=== PATIENT | male | born 1965 | race African-American/Black ===

== ENCOUNTER 2016-12-14 16:56 | Inpatient (IN) | payer OTHER ==
[~2016-12-14] VITALS: Ht 182.9 cm; Wt 114.8 kg
--- NOTE | ~2016-12-14 | HC ---
[facility] [place] [address] CONSULTATION Name: CHAYITO SU Room #: 310-P ADM IN M.R.#: [id number] Admission: 12/14/16 Attend Phys: Satya Frias Discharge: Date of : 65 Report #: [id number] THIS REPORT FOR: //name// CC: LOIS Frias DATE OF SERVICE: 12/15/2016 REASON FOR CONSULTATION: Renal failure with diabetic nephropathy and uncontrolled hypertension. HISTORY OF PRESENT ILLNESS: This is a 51-year-old male who has been followed by our group. He chronically sees Dr. Hoff in the office prior to Dr. Hoff's assisted. The patient has a known history of chronic kidney disease stage 4 due to diabetic nephropathy and hypertension. When he was last seen in the office by Dr. Hoff which was late October 2016, his creatinine level was 3.3 and 3.7 g of proteinuria. He had mild hyperkalemia with a potassium level of 5.6. He was on multidrug management for his hypertension. His medication list is as noted below. The patient states he has recently had blood pressures in the 130s/70s range and is comfortable with that, he has not had much in the way of edema. He does relate though that he has had progressive dizziness and weakness with lightheadedness over the past several months, which has gotten worse. He has chronic back pain. He also has chronic peripheral neuropathy. He is on extensive list of medications. He recently was stopped as far was taking some chronic cyclobenzaprine. He still remains though on some desipramine, diazepam, Cymbalta, gabapentin 600 mg t.i.d., hydrocodone and trazodone. Now his admitting meds are different than what we had list at the hospital. The trazodone on office list was 50 mg t.i.d. and he says he is taking that, although the medication list here in the hospital only says once daily at night, which will probably be more acceptable. There is also a list of some propafenone which I am uncertain if he is taking or not. His back pain is still his main presenting complaint though. From a kidney history, he is aware that his kidney function has been getting worse. He says he has not been having much in the way of edema and says he has no trouble voiding urine. PAST MEDICAL HISTORY: Longstanding diabetes and hypertension, this dates back many years. He has a history of coronary artery disease. He also has a history of pulmonary emboli. He is chronically on anticoagulation for that. He has intermittent atrial fibrillation in addition. He has chronic back pain, also has a history of gout. High blood pressure has been hard to control over the years. MEDICATIONS: As best I can tell, cyclobenzaprine was on his list, but has been stopped; metoprolol 25 mg b.i.d., Symbicort inhaler, nitroglycerin p.r.n., [facility] [address] [place] [address] CONSULTATION Name: GEORGESCHAYITO Room #: 310-P ADM IN M.R.#: [id number] Admission: 12/14/16 Attend Phys: Satya Frias Discharge: Date of : 65 Report #: [id number] propafenone 150 mg q. 8 hours, isosorbide mononitrate 30 mg daily, aspirin 81 mg daily, Lantus at bedtime, NovoLog 6 units 3 times a day, atorvastatin 40 mg daily, gabapentin 600 mg t.i.d., desipramine 25 mg daily, furosemide 40 mg b.i.d., lisinopril 20 mg b.i.d., clonidine 0.2 mg b.i.d., amlodipine 10 mg daily, metoprolol 50 mg b.i.d., tamsulosin 0.4 mg daily. ALLERGIES: Listed to some food products, no medications. The office list notes LISINOPRIL caused cough. FAMILY HISTORY: Negative for renal disease. SOCIAL HISTORY: The patient is chronically disabled due to his back. He has a female plastics engineering teacher who is here with him at this time. REVIEW OF SYSTEMS: Mainly positive for the dizziness, lightheadedness, weakness and the back pain. He says his edema has been well controlled. He has been working with our chronic kidney disease team as far as working on dietary control and thinks he is making improvements there. Currently denies dyspnea, chest pain, no palpitations. Denies nausea or vomiting. Reports no difficulty voiding urine. He thinks his edema has been well controlled, tends to be sleepy. Energy level is diminished. Denies fevers, chills or sweats. Reports no recent visual or hearing changes. PHYSICAL EXAMINATION: GENERAL: A very pleasant 51-year-old male, awake, alert and oriented at this time. VITAL SIGNS: Blood pressure 138/91, heart rate 74, respiratory rate 19, temperature 36.4, oxygen saturation 96%. HEENT: Shows pupils are equal and reactive. Sclerae are nonicteric. He does have bilateral nystagmus with lateral gaze. NECK: Shows no adenopathy, thyromegaly, JVD or bruit. CHEST: Clear bilaterally. BACK: Shows no CVA tenderness. HEART: Has a regular rate and rhythm. ABDOMEN: Has active bowel sounds, is soft and nontender. I cannot palpate organomegaly or masses. EXTREMITIES: Show no peripheral edema, has diminished pedal pulses. LABORATORY DATA: On admission, sodium 133, potassium 5.8, chloride 103, bicarbonate 20, BUN 73, creatinine 5.0, glucose 70. By this morning, potassium down to 5.1, BUN 66, creatinine 4.7. Calcium 7.8, phosphorus 5.2, magnesium 2.3. INR 2.0. White count 4.4, hemoglobin 12.0, hematocrit 34.6, platelets 159,000. Urinalysis; specific gravity 1.005, pH 5.0, 2+ protein, 1+ blood, urine protein creatinine ratio is about 1.8, spot urine sodium 21. ASSESSMENT: [facility] [address] [place] [address] CONSULTATION Name: CHAYITO SU Room #: 310-P ADM IN M.R.#: [id number] Admission: 12/14/16 Attend Phys: Satya Frias Discharge: Date of : 65 Report #: [id number] 1. Chronic kidney disease stage 4. He has an acute worsening. He has actually shown a fairly rapid progression over the recent months. He was still nephrotic in the office just a couple of months ago. His proteinuria is down about 1.8 grams now, which is actually an improvement. This would suggest he has had better blood pressure control, partly related to improved dietary balance. His lisinopril has been stopped but I want to get him back on it as this will be one of the keys to long-term management of his kidney state and preservation as best we can. I will get him back on 20 mg once a day. Heart rate is fairly well controlled. Volume is fairly good. He will need some long-term diuretic management and he has not been on any at this point. 2. Weakness and lightheadedness. He is on a massive grouping of medications and I think he is getting a lot this from that. On exam and review, it does not appear that he has been hypotensive and it does not appear that this is due to either his renal function or blood pressure medications. He has been on massive doses of gabapentin and as his renal function has declined, it is not clearing as well. He is also on numerous other both sedating and neuroactive medications. His gabapentin has already been stopped, it is appropriate. It will take a while for that to clear, but once it does, then we can discuss if he can get back on a lower dose, but certainly the 600 mg t.i.d. is way too much gabapentin for someone with his level of renal function. This will obviously be a difficult problem as his main complaint still related to his back pain now. 3. Hypertension. His grouping of meds is way too many. I am going to back off his clonidine as it may be causing some of his neuroactive problems also. We will cut him back to the nighttime dose only at this point. I will get him back on 20 mg of lisinopril. We will continue his other blood pressure medications at this time and see if we can streamline, rather than having small to moderate doses of multiple meds increasing a few and selecting fewer meds. 4. Chronic back pain as noted above. 5. Longstanding diabetes. 6. Hyperkalemia, mild. Again, potassium is better today. He has already received some dietary restriction as an outpatient. We will continue to work with him on that. Again, I would like to keep him on the lisinopril. PLAN: 1. Cut back clonidine to bedtime only. 2. Resume lisinopril 20 mg at bedtime. 3. Continue IV fluids overnight. 4. Recheck labs in the morning. 5. Stop his gabapentin. 6. We may need to wean back on some of his other neuroactive medications to allow his symptoms to improve. 7. We will follow along in the care of this pleasant patient. <ELECTRONICALLY SIGNED> By: Олег Nichols MD 12/16/16 0906 1200 [id number] Олег Nichols MD /nt
--- NOTE | ~2016-12-14 | EKG ---
[address] [place] [address] ELECTROCARDIOGRAM REPORT Name: CHAYITO SU Room #: 310-P ADM IN M.R.#: [id number] Admission: 12/14/16 Attend Phys: Satya Frias Discharge: Date of : 65 Report #: [id number] THIS REPORT FOR: //name// [facility] ED Test Date: 2016-12-14 Test Time: 20:47:39 Pat Name: CHAYITO SU Department: Room: 310 Gender: M Assistant In Nursing: Manish VENEGAS : 1965 Requested By: Jory Uribe Order Number: [id number] MD: Rufino Rivera Measurements Intervals [place] Rate: 70 P: 42 WV: 253 QRS: -18 QRSD: 82 T: -28 QT: 403 QTc: 435 Interpretive Statements Sinus rhythm Prolonged WV interval Borderline left axis deviation Borderline T abnormalities, inferior leads Borderline ST elevation, anterior leads Compared to ECG 08/30/2015 16:35:23 First degree AV block now present T-wave abnormality now present Atrial abnormality no longer present ST (T wave) deviation still present Electronically Signed On 12-16-2016 22:12:59 CDT by Rufino Rivera [email or web address] <ELECTRONICALLY SIGNED> By: Rufino Rivera MD 12/16/162211 46 46 Rufino Rivera MD /EPI
[~2016-12-14 16:56] MED LIST: ACETAMINOPHEN-120 ML PO; ACETAMINOPHEN325 M1 PO; ADVAIR HFA 45MC1 AER INH; ADVAIR HFA115 MCG/21; ADVAIR HFA115 MCG/21 INH; AMITRIPTYLINE; AMITRIPTYLINE H25 M2 PO; AMITRIPTYLINE H25 M4 PO; AMLODIPINE BESY10 MG PO; AMLODIPINE BESYL5 MG PO; AMOXICILLIN 50500 M1 PO; APAP/CODEINE ELI5 M1 OR; ASPIR 8181 MG PO; ASPIRIN EC81 M1 PO; ASPIRIN81 MG PO; ATORVASTATIN CA40 MG PO; CARAFATE 1 GM TA1 G1 PO; CARISOPRODOL 3350 MG PO; CLORAZEPATE DI7.5 M1 PO; COUMADIN 5 MG TA5 M1 PO; COUMADIN7.5 MG PO; COZAAR 50 MG TA50 MG PO; CYCLOBENZAPRINE10 MG PO; CYMBALTA20 MG PO; CYMBALTA60 MG PO; DEMADEX10 MG PO; DESIPRAMINE 2525 M1 PO; DIAZEPAM 5 MG5 M1 PO; DRISDOL50000 UNIT PO; DULCOLAX STOOL100 MG PO; ELAVIL; ENOXAPARIN100 MG/11 SUBQ; FISH OIL 1,2001 EAC3 PO; FLEXERIL PO; FLOMAX0.4 MG PO; FUROSEMIDE 40 M40 M1 PO; GLIPIZIDE ER10 MG PO; GLUCOPHAGE; GLUCOTROL5 MG PO; HORIZANT600 MG PO; HYDROCHLOROTHIA25 M2; HYDROCHLOROTHIA25 M2 PO; HYDROCODONE-AP1 EAC1 PO; HYDROCODONE-AP1 EAC6 PO; HYZAAR PO; IBUPROFEN 600600 M1 PO; IBUPROFEN 800800 M1 PO; IBUPROFEN 800800 MG PO; IMDUR 30 MG TAB30 M1 PO; LANTUS SUBQ; LASIX 40 MG TAB40 M2 PO; LATUDA40 MG PO; LEVEMIR; LEVEMIR SUBQ; LIPITOR40 MG PO; LISINOPRIL10 MG PO; LISINOPRIL20 MG PO; LOPRESSOR 50 MG50 M1 PO; LOPRESSOR100 MG PO; LOPRESSOR25 PO; LOPRESSOR50 PO; MEDROLDOSEPACK PO; MELOXICAM7.5 MG PO; METOPROLOL SUC100 MG PO; METOPROLOL TAR100 MG PO; NAPROSYN500 MG; NAPROSYN500 MG PO; NEURONTIN 300300 M1 PO; NEURONTIN600 MG PO; NITROGLYCERIN0.4 MG SL; NITROGLYCERIN0.4 MG SUBLING; NITROSTAT0.4 MG SUBLING; NORCO 5-325 TA1 EACH PO; NORVASC 5 MG TAB5 MG PO; NOVOLOG100 UNIT/1 SUBQ; OMEGA-31000 M1 PO; OMEGA-31000 MG PO; OXECTA5 MG; PEPCID20 MG PO; PEPCID40 MG PO; PERCOCET 5-3251 EACH PO; PRAVACHOL40 MG PO; PRAVACHOL80 MG PO; PRAVASTATIN SOD10 MG PO; PROPAFENONE 15150 MG PO; PROTONIX40 M1 PO; PROTONIX40 M2 PO; SIMVASTATIN40 MG PO; SYMBICORT80 MCG/4.1 INH; TOPROL XL50 MG PO; TRAMADOL 50 MG50 MG PO; TYLENOL W/CODEI1 TA2 PO; TYLENOL325 MG PO; VALIUM5 MG PO; VENTOLIN17 GM INH; VICODIN 5-3001 EACH PO; VITAMIN D1000 UNI1 PO; VITAMIN D2000 UNI1 PO; VITAMIN D35000 UNI1 PO; VITAMIN D350000 UNIT PO; VOLTAREN GEL 1100 GM TOP; XANAX 0.25 MG0.25 MG PO; XANAX 0.5 MG0.5 MG PO; ZANTAC 150MG T150 M1 PO; ZESTRIL20 MG PO; ZIAGEN 300 MG300 MG; ZOFRAN ODT4 MG PO; ZPAK PO
[2016-12-14 16:57] VITALS: BP 122/80
[2016-12-14 17:30] LABS: MCV 89.5 fL (80.0-100.0); WBC 8.1 thou/uL (4.0-11.0)
[2016-12-14 17:31] LABS: HEMATOCRIT 34.2 % (42.0-52.0); HEMOGLOBIN 11.8 gm/dL (14.0-18.0); MCHC 34.6 g/dL (28.0-37.0); RBC 3.82 mil/uL (4.50-6.00); RDW 13.9 % (10.5-14.5)
[2016-12-14 17:33] LABS: CALCIUM 8.1 mg/dL (8.5-10.1); POTASSIUM 5.8 mmol/L (3.5-5.1)
[2016-12-14 17:51] LABS: MANUAL DIFF YES
[2016-12-14 18:11] LABS: ABSOLUTE NEUTROPHILS 4.7 thou/uL (1.4-8.2); PLATELET COUNT 173 thou/uL (150-400); TOTAL CELL COUNT 100
[2016-12-14 18:14] LABS: APTT 35.8 Seconds (24.5-32.8); PROTIME 19.9 Seconds (9.3-11.4)
[2016-12-14] MEDS ORDERED: NORCO 5-325 TA1 EACH PO (19:20)
[2016-12-14 21:10] VITALS: BP 126/69; BP 129/85
[2016-12-14] MEDS ORDERED: WARFARIN SODIUM5 MG PO (23:05)
[2016-12-14] MEDS ORDERED: PROAIR HFA8.5 GM INH (23:05)
[2016-12-14] MEDS ORDERED: CATAPRES0.2 MG PO (23:06)
[2016-12-14] MEDS ORDERED: WARFARIN SODIUM1 MG PO (23:06)
[2016-12-14] MEDS ORDERED: TRAZODONE HCL50 MG PO (23:07)
[2016-12-14] MEDS ORDERED: VALIUM5 MG PO (23:07)
[2016-12-14] MEDS ORDERED: LOPRESSOR50 PO (23:08)
[2016-12-14] MEDS ORDERED: FENOFIBRATE160 MG PO (23:08)
[2016-12-14] MEDS ORDERED: NITROGLYCERIN0.4 MG SUBLING (23:09)
[2016-12-14 23:55] VITALS: BP 120/80
[2016-12-15] VITALS (8 sets, daily range): BP systolic 128–181; BP diastolic 86–95
[2016-12-15 03:56] LABS: PROTIME 20.3 Seconds (9.3-11.4)
[2016-12-15 04:07] LABS: HEMATOCRIT 34.6 % (42.0-52.0); MCH 31.1 pg (26.0-34.0); MCHC 34.6 g/dL (28.0-37.0); RBC 3.85 mil/uL (4.50-6.00); RDW 14.1 % (10.5-14.5); WBC 4.4 thou/uL (4.0-11.0)
[2016-12-15 04:18] LABS: CALCIUM 7.8 mg/dL (8.5-10.1); CREATININE 4.7 mg/dL (0.7-1.3); MAGNESIUM 2.3 mg/dL (1.8-2.4); PHOSPHORUS 5.2 mg/dL (2.5-4.9); POTASSIUM 5.1 mmol/L (3.5-5.1)
[2016-12-15 09:34] LABS: URINE BILIRUBIN NEGATIVE (Negative); URINE BLOOD 1+ (Negative); URINE COLOR YELLOW; URINE GLUCOSE-RANDOM* NEGATIVE (Negative); URINE KETONES NEGATIVE (Negative); URINE NITRITE NEGATIVE (Negative); URINE PROTEIN (DIPSTICK) 2+ (Negative); URINE SPECIFIC GRAVITY <= 1.005 (1.003-1.035); URINE UROBILINOGEN 0.2 E.U./dl (0.2-1.0)
[2016-12-15 09:53] LABS: URINE CREATININE-RANDOM* 43.5 mg/dL; URINE PROTEIN-RANDOM* 80.9 mg/dL (<11.9)
[2016-12-15 10:02] LABS: BACTERIA None Seen /HPF (None Seen); CASTS None Seen /LPF (None Seen); CRYSTALS None Seen /LPF (None Seen); SQUAMOUS None Seen /LPF (0-3); URINE RBC None Seen /HPF (0-2); URINE WBC 0-5 Rare /HPF (0-5)
[2016-12-16 03:56] LABS: HEMATOCRIT 35.7 % (42.0-52.0); HEMOGLOBIN 12.3 gm/dL (14.0-18.0); MCH 30.9 pg (26.0-34.0); MCHC 34.5 g/dL (28.0-37.0); MCV 89.6 fL (80.0-100.0); RBC 3.98 mil/uL (4.50-6.00); WBC 4.8 thou/uL (4.0-11.0)
[2016-12-16 04:00] VITALS: BP 148/92
[2016-12-16 04:23] LABS: INR 1.8; PROTIME 18.7 Seconds (9.3-11.4)
[2016-12-16 04:29] LABS: ALBUMIN 2.8 g/dL (3.4-5.0); CALCIUM 7.7 mg/dL (8.5-10.1); CREATININE 4.2 mg/dL (0.7-1.3)
[2016-12-16 04:36] LABS: POTASSIUM 6.2 mmol/L (3.5-5.1)
[2016-12-16 07:54] VITALS: BP 149/84
[2016-12-16 15:34] VITALS: BP 161/91
[2016-12-16 19:37] VITALS: BP 159/91
[2016-12-17 05:01] VITALS: BP 196/112
[2016-12-17 06:30] LABS: INR 1.9; PROTIME 19.4 Seconds (9.3-11.4)
[2016-12-17 06:31] LABS: ALBUMIN 3.2 g/dL (3.4-5.0); CALCIUM 8.4 mg/dL (8.5-10.1); CREATININE 3.5 mg/dL (0.7-1.3); PHOSPHORUS 5.2 mg/dL (2.5-4.9)
[2016-12-17 06:32] LABS: POTASSIUM 4.9 mmol/L (3.5-5.1)
[2016-12-17 08:45] VITALS: BP 169/87
[2016-12-17] MEDS ORDERED: HYDROCODON-ACE1 EAC7 PO (09:56)
[2016-12-17] MEDS ORDERED: HYDRALAZINE20 MG/M1 IV PUSH (16:23)
[2016-12-17] MEDS ORDERED: LIDODERM 5%1 PATC1 TRANSDERM (16:23)
[2016-12-17] MEDS ORDERED: LISINOPRIL40 MG PO (16:23)
[2016-12-17] MEDS ORDERED: HUMALOG100 UNIT/1 SUBQ (16:23)
[2016-12-18] MEDS ORDERED: NOVOLOG FL100 UNIT/M SC (09:54)
[2016-12-18] MEDS ORDERED: FENOFIBRATE160 MG PO (09:55)
[2016-12-18] MEDS ORDERED: PEPCID20 MG PO (09:55)
[2016-12-18] MEDS ORDERED: FLOMAX0.4 MG PO (09:56)
[2016-12-18] MEDS ORDERED: SYMBICORT80 MCG/4.1 INH (09:57)
[2016-12-18] MEDS ORDERED: ASPIR 8181 MG PO (09:57)
[2016-12-18] MEDS ORDERED: ATORVASTATIN CA40 MG PO (09:57)
[2016-12-18] MEDS ORDERED: LOPRESSOR50 PO (09:58)
[2016-12-18] MEDS ORDERED: HYDROCODONE-AP1 EAC6 PO (09:59)
[2016-12-18] MEDS ORDERED: LISINOPRIL20 MG PO (09:59)
[2016-12-18] MEDS ORDERED: NORVASC10 MG PO (10:00)
[2016-12-18] MEDS ORDERED: LEVEMIR SUBQ (10:00)
[2016-12-18] MEDS ORDERED: CATAPRES0.2 MG PO (10:01)
[2016-12-18] MEDS ORDERED: NEURONTIN600 MG PO (10:01)
[2016-12-18] MEDS ORDERED: PROAIR HFA8.5 GM INH (10:02)
[2016-12-18] MEDS ORDERED: COUMADIN 1MG TAB1 M1 PO (10:03)
[2016-12-18] MEDS ORDERED: VALIUM5 MG PO (10:03)
[2016-12-18] MEDS ORDERED: COUMADIN 5 MG TA5 M1 PO (10:03)
[2016-12-18] MEDS ORDERED: DULOXETINE HCL30 MG PO (10:04)
[2016-12-18] MEDS ORDERED: DESIPRAMINE 2525 M1 PO (10:05)
[2016-12-18] MEDS ORDERED: TRAZODONE HCL50 MG PO (10:06)
[2016-12-18] MEDS ORDERED: LATUDA60 MG PO (10:06)
== END 2016-12-17 17:37 | DRG 683 ==
LOC: ER 16:56 → EROBS 20:25 → 3N 20:25
PROVIDERS: Emergency Medicine; Hospitalist; Internal Medicine Nephrology; Nurse Practitioner Acute Care
DX: I12.9 Hypertensive chronic kidney disease with stage 1 through stage 4 chronic kidney disease, or unspecified chronic kidney disease (principal); N18.4 Chronic kidney disease, stage 4 (severe); N17.9 Acute kidney failure, unspecified; E11.22 Type 2 diabetes mellitus with diabetic chronic kidney disease; I48.2 Chronic atrial fibrillation; E11.21 Type 2 diabetes mellitus with diabetic nephropathy; E87.5 Hyperkalemia; E86.0 Dehydration; E11.649 Type 2 diabetes mellitus with hypoglycemia without coma; G89.29 Other chronic pain; M54.9 Dorsalgia, unspecified; F41.9 Anxiety disorder, unspecified; F32.9 Major depressive disorder, single episode, unspecified; F11.90 Opioid use, unspecified, uncomplicated; M10.9 Gout, unspecified; Z79.4 Long term (current) use of insulin; Z91.013 Allergy to seafood; Z91.018 Allergy to other foods; Z79.01 Long term (current) use of anticoagulants; Z79.899 Other long term (current) drug therapy; Z95.5 Presence of coronary angioplasty implant and graft; Z87.891 Personal history of nicotine dependence; Z86.711 Personal history of pulmonary embolism
CPT/HCPCS: 10096

== ENCOUNTER 2016-12-17 16:26 | Inpatient (IN) | payer OTHER ==
[~2016-12-17] VITALS: Ht 182.9 cm; Wt 110.5 kg
--- NOTE | ~2016-12-17 | HC ---
[facility] [place] [address] [place] [address] CONSULTATION Name: CHAYITO SU Room #: 505-P [facility] IN M.R.#: [id number] Admission: 12/17/16 Attend Phys: Jose Alejandro Leon MD Discharge: 12/21/16 Date of : 65 Report #: [id number] THIS REPORT FOR: //name// CC: LOIS Leon DATE OF SERVICE: 12/19/2016 CLINICAL PRESENTATION: The patient is a 51-year-old -[place] male admitted to the [facility] rehabilitation unit for a comprehensive inpatient rehabilitation program to improve functional mobility, activities of daily living and self-care and mental status secondary to impairment from a metabolic encephalopathy. He reported being at his home when he went to the restroom, returned to his room and lost his balance, falling backward and striking his head. 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 A complete description of his medical condition and history can be found in his medical record. Neuropsychological consultation was requested to provide assistance in the assessment of cognitive and emotional status and to provide recommendations and services. Prior to this most recent medical event, the patient was living independently in his own home. He has four children. The patient has been on disability since the year 1999. He reports having worked for [employer] prior to disability. The patient is a high school graduate. TECHNIQUES UTILIZED: Clinical interview, review of medical records, staff consultation and behavioral observation, clinical interview, mini mental status exam 2 standard version and category fluency and clock drawing. EXAMINATION FINDINGS: The patient was alert and cooperative with the assessment. He accurately described events surrounding his admission. There is no evidence of aphasia. He does not report auditory or visual hallucinations. Thought content was appropriate. He described his symptoms to include difficulty with sleep, appetite, blurred vision and variability in cognition. Subjective anxiety and depression is also reported. The patient indicates that his son would help with nutrition at home and clean his house. He also has assistance managing medication. He appears independent for basic and some instrumental activities of daily living. The patient discontinued driving about 17 years ago. His performance on the MMSE 2 brief version is within normal limits with a raw [facility] [address] [place] [address] CONSULTATION Name: CHAYITO SU Room #: 505-P [facility] IN .R.#: [id number] Admission: 12/17/16 Attend Phys: Jose Alejandro Leon MD Discharge: 12/21/16 Date of : 65 Report #: [id number] score of 14 of 16. He was 3/3 for initial registration, 5/5 for orientation to time and 5/[address]. He was 1/3 correct for immediate recall of 3 items after a brief time delay and distraction. Mild impairment was suggested on the MMSE 2 standard version with a raw score of 25 of 30 and a T-score of 39. He was 3/5 for serial sevens, 2/2 for naming, 1/1 for repetition. Auditory comprehension was within normal limits. He could read and follow a single command. The patient was able to write a sentence. However, he had difficulty in copying a simple geometric design. The patient was able to draw a clock and set the hands at a designated time. Category fluency was within normal limits with a raw score of 19 and a T score of 50. DIAGNOSTIC IMPRESSION: Mild neurocognitive disorder, unspecified, without behavior disorder. RECOMMENDATIONS: The patient appears alert and oriented. He is having a good recovery in regard to cognitive functioning. Continued environmental support will be necessary to maintain safety. Use of compensatory strategies for memory and concentration will likely be the most helpful. The use of narcotic medication as well as medication with sedating features will contribute to variability in cognition. Sedating medication should be minimized as much as possible. Thank you very much for allowing me to provide the consultation on this patient. <ELECTRONICALLY SIGNED> By: Regis Arvizu, PhD 12/23/16 1444 [id number] [id number] Regis Arvizu, PhD /nt
--- NOTE | ~2016-12-17 | PLAN ---
[facility] [place] [place] [address] REHAB UNIT PLAN OF CARE Name: CHAYITO SU Room #: 505-P ADM IN M.R.#: [id number] Admission: 12/17/16 Attend Phys: Jose Alejandro Leon MD Discharge: Date of : 65 Report #: [id number] THIS REPORT FOR: //name// CC: LOIS Leon DATE OF SERVICE: 12/19/2016 The patient is seen back today in followup. He is in no distress. Temperature 37.2, pulse 94, respirations 21, blood pressure 184/100. He did have hyperkalemia yesterday up to 6.4, was given some Kayexalate, decreased to 5.3, is 5.9 this morning. Nephrology is involved as well as internal medicine. He is being monitored regarding his chronic kidney disease. Mental status appears to be improving. Transfers are contact guard, gait 250 feet contact guard with a front-wheeled walker. Lower extremity dressing is min assist. Speech, he only has mild comprehensive deficits. ASSESSMENT: 1. Metabolic encephalopathy. Neurontin was held. He appears to be improving. 2. Head injury with initial loss of consciousness of unknown duration. 3. Medical complexity with generalized debilitation. 4. Polypharmacy. Valium was discontinued as well as Neurontin. 5. Hyperkalemia. Nephrology is involved along with internal medicine. 6. Acute renal insufficiency with improvement. 7. Chronic kidney disease. 8. Hypertension. 9. Diabetes mellitus. 10. Prior pulmonary embolism. 11. History of atrial fibrillation. PLAN: The overall plan of care is based on the preadmission screen, post-admission physician evaluation and information garnered from therapy assessments. 1. Estimated length of stay is planning through Saturday with discharge at the end of the week. 2. Medical prognosis is reasonably good. 3. Anticipated interventions includes the interdisciplinary acute inpatient rehabilitation program. 4. Anticipated functional outcomes would be for the patient to become modified independent with transfers, mobility and ADLs and cognition, so that he can return back to the home setting. 5. Discharge destination will be back to the home setting where he lives in an apartment. He does have assistance at his apartment. 6. Expected therapy by discipline includes PT, OT and speech 1 hour per day [address] [address] REHAB UNIT PLAN OF CARE Name: CHAYITO SU Room #: 505-P [facility] IN .R.#: [id number] Admission: 12/17/16 Attend Phys: Jose Alejandro Leon MD Discharge: Date of : 65 Report #: [id number] each five days a week throughout the duration of the acute inpatient rehabilitation stay. By: [id number] Jose Alejandro Leon MD /nt
--- NOTE | ~2016-12-17 | H ---
[facility] [place] [place] [address] HISTORY AND PHYSICAL Name: CHAYITO SU Room #: 505-P ADM IN M.R.#: [id number] Admission: 12/17/16 Attend Phys: Jose Alejandro Leon MD Discharge: Date of : 65 Report #: [id number] THIS REPORT FOR: //name// CC: LOIS Leon DATE OF SERVICE: 12/18/2016 HISTORY OF PRESENT ILLNESS: The patient is a 51-year-old -[place] male with stage 4 end-stage renal disease who fell at home. He had a loss of consciousness of unknown duration, noted blood from his nose. He was noted to be more disoriented. He has a history of chronic back pain; he has been on narcotics and prior spinal cord stimulator removal. He was noted to be adamant that he had not been abusing his medications. He was noted to have hyperkalemia. He has a prior history of chronic AFib and a prior history of pulmonary embolism. He was noted to have mental status changes with an encephalopathy and was kept off his gabapentin as it was thought to likely be a contributing factor. CT of the head was unremarkable. CT of the cervical spine was negative for fracture. His renal function improved with his creatinine decreasing from a high of 5.0, down to 3.8. He usually runs at baseline around 3. Nephrology has been closely involved. Mental status changes are noted to be improving. He is continuing on anticoagulation with his prior PEs and atrial fibrillation. With his cognitive issues and significant functional decline, he has now been admitted for acute in-hospital inpatient rehabilitation. PAST MEDICAL HISTORY: Includes chronic pain syndrome with prior TENs, spinal cord stimulator and removal; insulin-dependent diabetes mellitus; depression; anxiety; gout; hyperlipidemia; cardiac stents x 1; carpal tunnel, both wrists without surgery; he notes history of bilateral rotator cuff discomfort, but no surgery and no history of tears; history of restless leg syndrome; chronic kidney disease, stage 3 to 4; type 2 diabetes mellitus; bilateral PEs, 07/24/2015. MEDICATIONS: Please see the full medication listing. HABITS: Former smoker, quit greater than a year ago. No history of alcohol abuse. ALLERGIES: To CERTAIN FOODS, APPLE, FISH AND SEA FOOD. SOCIAL HISTORY: Lives in an apartment alone, no steps. Premorbidly has utilized a front-wheeled walker for approximately the last 8 years. He notes he uses it to help with his decreased balance. He does have a son in the area, but this son and his are in the process of moving to [place] in the fall. REVIEW OF SYSTEMS: No current complaints of chest pain, shortness of breath or [facility] [address] [place] [address] HISTORY AND PHYSICAL Name: CHAYITO SU Room #: 505-P [facility] IN M.R.#: [id number] Admission: 12/17/16 Attend Phys: Jose Alejandro Leon MD Discharge: Date of : 65 Report #: [id number] abdominal discomfort. 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 He has some decreased sensation in distal lower extremities consistent with his neuropathy. No current focal extremity pain complaints. PHYSICAL EXAMINATION: GENERAL: He is a pleasant, overweight 51-year-old -[place] male, no obvious distress. VITAL SIGNS: Last recorded temperature 98.3, pulse 78, respirations 20, blood pressure 148/92. NEUROLOGIC: The patient is alert. There is some latency to his responses. He tends to be concrete. He is cooperative. Facies appeared to be symmetric. HEENT: Benign. CHEST: Sounded clear to auscultation. CARDIAC: Regular rate and rhythm. ABDOMEN: Obese, bowel sounds positive, nontender. GENITOURINARY AND RECTAL: Deferred. MUSCULOSKELETAL: He has functional range of motion of the upper extremities, strength is grade 4-/5, DTRs are trace to 1. Lower extremities, no focal calf swelling, decreased distal sensation large toe to proprioception. His strength of lower extremities is grade 3+ to 4-/5, DTRs are trace to 1. Transfers have been contact guard and short distance ambulation is contact guard. ASSESSMENT: A 51-year-old -[place] female with the following problem list: 1. Metabolic encephalopathy. Neurontin was held as per Nephrology. 2. Head injury with initial loss of consciousness of unknown duration. This may be contributing to the mental status changes noted above. 3. Medical complexity with generalized debilitation. 4. Polypharmacy. Valium was discontinued as well as the Neurontin. 5. Acute renal insufficiency with improvement. 6. Chronic kidney disease, on CRISTIAN inhibitor. 7. Hypertension. 8. Diabetes mellitus. 9. Prior pulmonary embolism. 10. History of atrial fibrillation. PLAN: The patient is admitted for acute in-hospital inpatient rehabilitation. From a postadmission physician evaluation perspective, there are no relevant changes since the preadmission screening. Please see the above review of prior and current medical and functional conditions and comorbidities. Please see the patient's prior and current functional status. As far as risk of complications, he does have the multiple medical comorbidities as noted above. Initial plan of care involves the interdisciplinary acute inpatient rehabilitation program with the goal of maximizing the patient's functional independence, so that he can hopefully return back to his prior living situation. Measurable functional [address] [address] HISTORY AND PHYSICAL Name: CHAYITO SU Room #: 505-P ADM IN .R.#: [id number] Admission: 12/17/16 Attend Phys: Jose Alejandro Leon MD Discharge: Date of : 65 Report #: [id number] goals would be for him to become modified independent with transfers, mobility and ADLs at the walker level as well as to improve with cognition, so that he can return back to his apartment. Prognosis is reasonably good with estimated length of stay hopefully fairly short, around a week to 14 days. Potential barriers would include his multiple medical comorbidities and decreased functional status. By: 0846 Jose Alejandro Leon MD /nt
[~2016-12-17 16:26] MED LIST changes: +CATAPRES0.2 MG PO; +FENOFIBRATE160 MG PO; +HUMALOG100 UNIT/1 SUBQ; +HYDRALAZINE20 MG/M1 IV PUSH; +HYDROCODON-ACE1 EAC7 PO; +LIDODERM 5%1 PATC1 TRANSDERM; +LISINOPRIL40 MG PO; +PROAIR HFA8.5 GM INH; +TRAZODONE HCL50 MG PO; +WARFARIN SODIUM1 MG PO; +WARFARIN SODIUM5 MG PO
[2016-12-17 17:40] VITALS: BP 165/95
[2016-12-18 06:08] LABS: INR 2.3; PROTIME 23.6 Seconds (9.3-11.4)
[2016-12-18 06:12] LABS: ALBUMIN 3.1 g/dL (3.4-5.0); CALCIUM 8.3 mg/dL (8.5-10.1); CREATININE 3.8 mg/dL (0.7-1.3); PHOSPHORUS 4.3 mg/dL (2.5-4.9)
[2016-12-18 06:14] LABS: POTASSIUM 6.4 mmol/L (3.5-5.1)
[2016-12-18 06:15] VITALS: BP 138/89
[2016-12-18 06:16] VITALS: BP 139/91; BP 148/92
[2016-12-18] MEDS ORDERED: NOVOLOG FL100 UNIT/M SC (09:54)
[2016-12-18] MEDS ORDERED: FENOFIBRATE160 MG PO (09:55)
[2016-12-18] MEDS ORDERED: PEPCID20 MG PO (09:55)
[2016-12-18] MEDS ORDERED: FLOMAX0.4 MG PO (09:56)
[2016-12-18] MEDS ORDERED: ATORVASTATIN CA40 MG PO (09:57)
[2016-12-18] MEDS ORDERED: ASPIR 8181 MG PO (09:57)
[2016-12-18] MEDS ORDERED: SYMBICORT80 MCG/4.1 INH (09:57)
[2016-12-18] MEDS ORDERED: LOPRESSOR50 PO (09:58)
[2016-12-18] MEDS ORDERED: LISINOPRIL20 MG PO (09:59)
[2016-12-18] MEDS ORDERED: HYDROCODONE-AP1 EAC6 PO (09:59)
[2016-12-18] MEDS ORDERED: NORVASC10 MG PO (10:00)
[2016-12-18] MEDS ORDERED: LEVEMIR SUBQ (10:00)
[2016-12-18] MEDS ORDERED: NEURONTIN600 MG PO (10:01)
[2016-12-18] MEDS ORDERED: CATAPRES0.2 MG PO (10:01)
[2016-12-18] MEDS ORDERED: PROAIR HFA8.5 GM INH (10:02)
[2016-12-18] MEDS ORDERED: COUMADIN 5 MG TA5 M1 PO (10:03)
[2016-12-18] MEDS ORDERED: COUMADIN 1MG TAB1 M1 PO (10:03)
[2016-12-18] MEDS ORDERED: VALIUM5 MG PO (10:03)
[2016-12-18] MEDS ORDERED: DULOXETINE HCL30 MG PO (10:04)
[2016-12-18] MEDS ORDERED: DESIPRAMINE 2525 M1 PO (10:05)
[2016-12-18] MEDS ORDERED: LATUDA60 MG PO (10:06)
[2016-12-18] MEDS ORDERED: TRAZODONE HCL50 MG PO (10:06)
[2016-12-18 16:20] VITALS: BP 169/98
[2016-12-19 05:38] VITALS: BP 136/99
[2016-12-19 05:39] VITALS: BP 144/99
[2016-12-19 05:40] VITALS: BP 135/101
[2016-12-19 06:30] LABS: ALBUMIN 3.1 g/dL (3.4-5.0); CALCIUM 8.6 mg/dL (8.5-10.1); CREATININE 4.4 mg/dL (0.7-1.3); PHOSPHORUS 4.4 mg/dL (2.5-4.9); POTASSIUM 5.9 mmol/L (3.5-5.1)
[2016-12-19 06:33] LABS: INR 2.4; PROTIME 24.3 Seconds (9.3-11.4)
[2016-12-19 07:52] VITALS: BP 184/100
[2016-12-19 21:12] VITALS: BP 168/103
[2016-12-20] VITALS (7 sets, daily range): BP systolic 130–175; BP diastolic 85–102
[2016-12-20 06:03] LABS: INR 2.2
[2016-12-20 06:10] LABS: CALCIUM 8.7 mg/dL (8.5-10.1); CREATININE 4.7 mg/dL (0.7-1.3)
[2016-12-21 05:01] LABS: INR 2.5; PROTIME 24.9 Seconds (9.3-11.4)
[2016-12-21 05:04] LABS: ALBUMIN 3.1 g/dL (3.4-5.0); CALCIUM 8.7 mg/dL (8.5-10.1); CREATININE 4.7 mg/dL (0.7-1.3); PHOSPHORUS 5.4 mg/dL (2.5-4.9); POTASSIUM 4.6 mmol/L (3.5-5.1)
[2016-12-21 06:00] VITALS: BP 158/98
[2016-12-21 06:02] VITALS: BP 155/91
[2016-12-21 06:04] VITALS: BP 144/94
[2016-12-21 07:07] VITALS: BP 172/106
[2016-12-21 12:46] VITALS: BP 172/106
[2016-12-21] MEDS ORDERED: WARFARIN SODIUM1 MG PO (12:56)
[2016-12-21] MEDS ORDERED: TRAZODONE HCL50 MG PO (12:56)
[2016-12-21] MEDS ORDERED: NITROGLYCERIN0.4 MG SUBLING (12:56)
[2016-12-21] MEDS ORDERED: CARDURA4 MG PO (12:56)
[2016-12-21] MEDS ORDERED: NORVASC10 MG PO (12:56)
[2016-12-21] MEDS ORDERED: PROAIR HFA8.5 GM INH (12:56)
[2016-12-21] MEDS ORDERED: DULOXETINE HCL30 MG PO (12:56)
[2016-12-21] MEDS ORDERED: DESIPRAMINE 2525 M1 PO (12:56)
[2016-12-21] MEDS ORDERED: LOPRESSOR50 PO (12:56)
[2016-12-21] MEDS ORDERED: ATORVASTATIN CA40 MG PO (12:56)
[2016-12-21] MEDS ORDERED: WARFARIN SODIUM5 MG PO (12:56)
== END 2016-12-21 13:00 | disposition home health service (06) | DRG 71 ==
PROVIDERS: Internal Medicine Nephrology; Physical Medicine & Rehabilitation
DX: G93.41 Metabolic encephalopathy (principal); S06.9X9A Unspecified intracranial injury with loss of consciousness of unspecified duration, initial encounter; N17.9 Acute kidney failure, unspecified; N18.4 Chronic kidney disease, stage 4 (severe); R53.81 Other malaise; E87.5 Hyperkalemia; I48.91 Unspecified atrial fibrillation; E11.22 Type 2 diabetes mellitus with diabetic chronic kidney disease; G31.84 Mild cognitive impairment of uncertain or unknown etiology; G89.4 Chronic pain syndrome; F32.9 Major depressive disorder, single episode, unspecified; F41.9 Anxiety disorder, unspecified; E78.5 Hyperlipidemia, unspecified; G25.81 Restless legs syndrome; Z60.2 Problems related to living alone; I12.9 Hypertensive chronic kidney disease with stage 1 through stage 4 chronic kidney disease, or unspecified chronic kidney disease; R33.9 Retention of urine, unspecified; X58.XXXA Exposure to other specified factors, initial encounter; Y93.89 Activity, other specified; Y92.89 Other specified places as the place of occurrence of the external cause; Y99.8 Other external cause status; Z86.711 Personal history of pulmonary embolism; Z95.5 Presence of coronary angioplasty implant and graft; Z91.013 Allergy to seafood; Z91.018 Allergy to other foods
CPT/HCPCS: 10112

== ENCOUNTER → 2016-12-21 | Outpatient (CLI) | payer OTHER ==
[~2016-12-21] MED LIST changes: +CARDURA4 MG PO; +COUMADIN 1MG TAB1 M1 PO; +DULOXETINE HCL30 MG PO; +LATUDA60 MG PO; +NORVASC10 MG PO; +NOVOLOG FL100 UNIT/M SC
== END ==
LOC: SLEEPLAB 11:41
DX: G47.33 Obstructive sleep apnea (adult) (pediatric) (principal); R40.0 Somnolence

== ENCOUNTER → 2017-04-26 | Outpatient (CLI) | payer OTHER | LOC: SLEEPLAB 11:16 | DX: G47.33 Obstructive sleep apnea (adult) (pediatric) (principal) ==

== ENCOUNTER → 2017-06-26 | Outpatient (CLI) | payer OTHER ==
[~2017-06-26] MED LIST changes: +AUGMENTIN 500-1 EACH PO; +COLACE100 MG PO; +COUMADIN 3 MG TA3 M1 PO; +KEFLEX500 M1 PO; +MIRALAX17 GM PO; +NORCO 7.5-3251 EACH PO; +NORFLEX100 MG PO; +ONDANSETRON HCL4 M2 PO; +OXYCODONE HCL 55 MG PO; +PROBIOTIC1 EAC1 PO; +SODIUM BICARBO650 M3 PO; +UNASYN 3 GM VIAL3 G1 IV; +VELTASSA8.4 GM PO
== END ==
LOC: ULTRA 09:20
DX: N18.4 Chronic kidney disease, stage 4 (severe) (principal)

== ENCOUNTER 2017-08-06 13:35 | Emergency (ER) | payer OTHER ==
[~2017-08-06] VITALS: Ht 182.9 cm; Wt 99.8 kg
[~2017-08-06 13:35] MED LIST changes: -AUGMENTIN 500-1 EACH PO; -COLACE100 MG PO; -COUMADIN 3 MG TA3 M1 PO; -KEFLEX500 M1 PO; -MIRALAX17 GM PO; -NORCO 7.5-3251 EACH PO; -NORFLEX100 MG PO; -ONDANSETRON HCL4 M2 PO; -OXYCODONE HCL 55 MG PO; -PROBIOTIC1 EAC1 PO; -SODIUM BICARBO650 M3 PO; -UNASYN 3 GM VIAL3 G1 IV; -VELTASSA8.4 GM PO
[2017-08-06] MEDS ORDERED: CYMBALTA20 MG PO (14:11)
[2017-08-06] MEDS ORDERED: ONDANSETRON HCL4 M2 PO (14:12)
[2017-08-06] MEDS ORDERED: VELTASSA8.4 GM PO (14:12)
[2017-08-06] MEDS ORDERED: TRAMADOL 50 MG50 MG PO (14:13)
[2017-08-06 16:08] LABS: URINE BILIRUBIN NEGATIVE (Negative); URINE BLOOD 1+ (Negative); URINE CLARITY CLEAR; URINE COLOR YELLOW; URINE GLUCOSE-RANDOM* 1+ (Negative); URINE KETONES NEGATIVE (Negative); URINE LEUKOCYTES-REFLEX NEGATIVE (Negative); URINE NITRITE-REFLEX NEGATIVE (Negative); URINE PROTEIN (DIPSTICK) 3+ (Negative); URINE SPECIFIC GRAVITY 1.015 (1.005-1.035); URINE UROBILINOGEN 0.2 E.U./dl (0.2-1.0)
[2017-08-06 16:16] LABS: BACTERIA-REFLEX 1-9 Few /HPF (None Seen); CASTS None Seen /LPF (None Seen); CRYSTALS None Seen /LPF (None Seen); SQUAMOUS 0-3 Few /LPF (0-3); URINE RBC None Seen /HPF (0-2); URINE WBC-REFLEX None Seen /HPF (0-5)
[2017-08-06 16:48] LABS: ABSOLUTE NEUTROPHILS 3.5 thou/uL (1.4-8.2); BASOPHILS 0.8 % (0.0-2.0); EOSINOPHILS 6.9 % (0.0-3.0); HEMATOCRIT 37.7 % (42.0-52.0); HEMOGLOBIN 12.7 gm/dL (14.0-18.0); LYMPHOCYTES 17.3 % (24.0-44.0); MCH 30.2 pg (26.0-34.0); MCHC 33.7 g/dL (28.0-37.0); MCV 89.5 fL (80.0-100.0); MONOCYTES 6.2 % (1.0-8.0); PLATELET COUNT 171 thou/uL (150-400); POLYS 68.8 % (36.0-66.0); RBC 4.21 mil/uL (4.50-6.00); RDW 13.3 % (10.5-14.5); WBC 5.2 thou/uL (4.0-11.0)
[2017-08-06 16:56] LABS: CALCIUM 8.1 mg/dL (8.5-10.1); CREATININE 4.6 mg/dL (0.7-1.3); POTASSIUM 5.1 mmol/L (3.5-5.1)
[2017-08-06 17:02] LABS: ALBUMIN 2.9 g/dL (3.4-5.0); TOTAL BILIRUBIN 0.3 mg/dL (<0.1-1.0)
[2017-08-06] MEDS ORDERED: OXYCODONE HCL 55 MG PO (18:41)
[2017-08-06] MEDS ORDERED: KEFLEX500 M1 PO (18:41)
[2017-08-06 18:50] VITALS: BP 166/102
== END 2017-08-06 18:51 | disposition home or self-care (01) ==
LOC: ER 13:35
PROVIDERS: Emergency Medicine
DX: M62.830 Muscle spasm of back (principal); M79.7 Fibromyalgia; G89.29 Other chronic pain; F32.9 Major depressive disorder, single episode, unspecified; F41.9 Anxiety disorder, unspecified; M10.9 Gout, unspecified; E78.5 Hyperlipidemia, unspecified; I48.0 Paroxysmal atrial fibrillation; G25.81 Restless legs syndrome; E11.22 Type 2 diabetes mellitus with diabetic chronic kidney disease; N18.3 Chronic kidney disease, stage 3 (moderate); I12.9 Hypertensive chronic kidney disease with stage 1 through stage 4 chronic kidney disease, or unspecified chronic kidney disease; Z91.018 Allergy to other foods; Z91.013 Allergy to seafood; Z79.4 Long term (current) use of insulin

== ENCOUNTER 2017-08-12 10:37 | Emergency (ER) | payer OTHER ==
[~2017-08-12] VITALS: Ht 182.9 cm; Wt 100.2 kg
[~2017-08-12 10:37] MED LIST changes: +KEFLEX500 M1 PO; +ONDANSETRON HCL4 M2 PO; +OXYCODONE HCL 55 MG PO; +VELTASSA8.4 GM PO
[2017-08-12 12:07] LABS: URINE BILIRUBIN NEGATIVE (Negative); URINE BLOOD 1+ (Negative); URINE CLARITY CLEAR; URINE COLOR YELLOW; URINE GLUCOSE-RANDOM* 1+ (Negative); URINE KETONES NEGATIVE (Negative); URINE LEUKOCYTES NEGATIVE (Negative); URINE NITRITE NEGATIVE (Negative); URINE PROTEIN (DIPSTICK) 3+ (Negative); URINE SPECIFIC GRAVITY 1.015 (1.005-1.035); URINE UROBILINOGEN 0.2 E.U./dl (0.2-1.0)
[2017-08-12 12:12] LABS: ABSOLUTE NEUTROPHILS 2.7 thou/uL (1.4-8.2); BASOPHILS 0.7 % (0.0-2.0); EOSINOPHILS 8.8 % (0.0-3.0); HEMATOCRIT 36.5 % (42.0-52.0); HEMOGLOBIN 12.6 gm/dL (14.0-18.0); LYMPHOCYTES 17.1 % (24.0-44.0); MCH 30.8 pg (26.0-34.0); MCHC 34.6 g/dL (28.0-37.0); MCV 88.8 fL (80.0-100.0); MONOCYTES 9.5 % (1.0-8.0); PLATELET COUNT 181 thou/uL (150-400); POLYS 63.9 % (36.0-66.0); RBC 4.11 mil/uL (4.50-6.00); RDW 13.3 % (10.5-14.5); WBC 4.3 thou/uL (4.0-11.0)
[2017-08-12 12:31] LABS: SQUAMOUS 0-3 Few /LPF (0-3); URINE RBC 0-2 Rare /HPF (0-2); URINE WBC 0-5 Rare /HPF (0-5)
[2017-08-12 12:32] LABS: BACTERIA 1-9 Few /HPF (None Seen); CASTS None Seen /LPF (None Seen); CRYSTALS None Seen /LPF (None Seen)
[2017-08-12 12:32] LABS: CALCIUM 8.2 mg/dL (8.5-10.1); CREATININE 4.8 mg/dL (0.7-1.3); POTASSIUM 4.9 mmol/L (3.5-5.1)
[2017-08-12] MEDS ORDERED: NORCO 5-325 TA1 EACH PO (12:44)
[2017-08-12 13:21] VITALS: BP 149/82
== END 2017-08-12 13:14 | disposition home or self-care (01) ==
LOC: ER 10:37
PROVIDERS: Emergency Medicine
DX: M54.5 Low back pain (principal); M10.9 Gout, unspecified; E78.5 Hyperlipidemia, unspecified; I12.9 Hypertensive chronic kidney disease with stage 1 through stage 4 chronic kidney disease, or unspecified chronic kidney disease; E11.22 Type 2 diabetes mellitus with diabetic chronic kidney disease; N18.3 Chronic kidney disease, stage 3 (moderate); M79.7 Fibromyalgia; Z87.891 Personal history of nicotine dependence; Z91.013 Allergy to seafood

== ENCOUNTER 2017-08-24 13:51 | Emergency (ER) | payer OTHER ==
[~2017-08-24] VITALS: Ht 182.9 cm; Wt 108.9 kg
[2017-08-24] MEDS ORDERED: SODIUM BICARBO650 M3 PO (14:02)
[2017-08-24] MEDS ORDERED: DESIPRAMINE 2525 M1 PO (14:03)
[2017-08-24] MEDS ORDERED: HYDROCODONE-AP1 EAC6 PO (14:34)
[2017-08-24] MEDS ORDERED: NORFLEX100 MG PO (14:34)
[2017-08-24 15:21] VITALS: BP 159/96
== END 2017-08-24 15:22 | disposition home or self-care (01) ==
LOC: ER 13:51
DX: M54.5 Low back pain (principal); G89.29 Other chronic pain; Z76.0 Encounter for issue of repeat prescription; M79.7 Fibromyalgia; E11.9 Type 2 diabetes mellitus without complications; F32.9 Major depressive disorder, single episode, unspecified; F41.9 Anxiety disorder, unspecified; M10.9 Gout, unspecified; E78.5 Hyperlipidemia, unspecified; I48.91 Unspecified atrial fibrillation; E11.22 Type 2 diabetes mellitus with diabetic chronic kidney disease; N18.3 Chronic kidney disease, stage 3 (moderate); I12.9 Hypertensive chronic kidney disease with stage 1 through stage 4 chronic kidney disease, or unspecified chronic kidney disease; Z86.711 Personal history of pulmonary embolism; Z79.4 Long term (current) use of insulin; Z91.018 Allergy to other foods; Z91.013 Allergy to seafood; Z87.891 Personal history of nicotine dependence

== ENCOUNTER 2017-10-15 14:02 | Inpatient (IN) | payer OTHER ==
[~2017-10-15] VITALS: Ht 182.9 cm; Wt 107.8 kg
[2017-10-15] VITALS (11 sets, daily range): BP systolic 87–219; BP diastolic 47–112
--- NOTE | ~2017-10-15 | HC ---
[facility] [place] [address] CONSULTATION Name: CHAYITO SU Room #: 240-P [facility] IN M.R.#: [id number] Admission: 10/15/17 Attend Phys: Amando Gonzalez MD Discharge: Date of : 65 Report #: [id number] THIS REPORT FOR: //name// CC: FAM unknown Amando Gonzalez DATE OF SERVICE: 10/15/2017 INFECTIOUS DISEASE CONSULTATION REASON FOR CONSULTATION: I was asked to evaluate the patient concerning peritonitis. HISTORY OF PRESENT ILLNESS: The patient was evaluated in the Emergency Room. He presented with acute onset of abdominal pain. He is a 52-year-old with underlying history of hypertension, diabetes, end-stage renal disease. Two weeks ago, he had a peritoneal catheter placed by Dr. Corona. Since that placement, he has had abdominal discomfort, mostly down in his lower abdomen and pelvic region, specifically after he would urinate and defecate, it would worsen. Otherwise, he had just an ache associated with the catheter. Today, dialysis nurse attempted to flush the catheter. After tube flushes and attempts at aspiration back, the patient had excruciating pain that would not relent. He presented to the Emergency Room for further evaluation. He has been nauseated with some reflux. He has not eaten all day. He has had a small volume of urine output today. He notes increased pain on urination. He is unable to get in a position where his abdomen is not tender. His last stool was yesterday. On presentation to the Emergency Room, he was afebrile. Vital signs were stable. Actually, his blood pressure was high. His oxygen on room air was 100%. He had a CAT scan, which showed evidence of inflammatory change down in the pelvis around the catheter in the sigmoid colon. He had some free air under the diaphragm. No evidence of abscess or significant fluid collection. He was given vancomycin, ceftazidime empirically. Doses of these medications have just begun to be infused. PAST MEDICAL HISTORY: Hypertension, atrial fibrillation, diabetes, depression, anxiety, gout, restless legs syndrome, peripheral neuropathy, end-stage renal disease, viral meningitis in 2005, pulmonary emboli, fibromyalgia, brachial plexus syndrome, chronic pain syndrome, peritoneal dialysis catheter placement, 10 spinal cord stimulator and removal, cardiac stent, balloon angioplasty, carpal tunnel syndrome with myofascial injections, hammertoe surgery on the right. FAMILY HISTORY: Noncontributory. SOCIAL HISTORY: Past smoker, no significant alcohol intake. [facility] [address] [place] [address] CONSULTATION Name: CHAYITO SU Room #: 240-P [facility] IN .R.#: [id number] Admission: 10/15/17 Attend Phys: Amando Gonzalez MD Discharge: Date of : 65 Report #: [id number] ALLERGIES: APPLE, FISH, SEAFOOD. MEDICATIONS: As noted on his MAR, noting he is on Coumadin. He also takes Levemir insulin, Cymbalta, calcium bicarbonate, desipramine, NovoLog insulin, Pepcid, Flomax, Symbicort, Catapres, Valium, Latuda. REVIEW OF SYSTEMS: Notes no headache, cough or sputum production. No pleuritic chest pain. No rashes or decubiti. PHYSICAL EXAMINATION: VITAL SIGNS: He is afebrile, hemodynamically stable. GENERAL: He is lying in bed with his head propped up. He was pleasant and conversant. He had significant amount of pain and would guard on any movement of the bed. HEENT: Unremarkable. NECK: Supple, no adenopathy, no rash. LUNGS: Few crackles in the bases bilaterally. HEART: Regular, without murmur. ABDOMEN: Distended, diffusely tender to very mild palpation consistent with peritonitis changes. He had rebound and guarding. Lower abdominal drain was in place. He did not localize a specific area of tenderness. I did not appreciate any mass. I did not appreciate any hepatosplenomegaly. EXTREMITIES: Unremarkable. LABORATORY STUDIES: Hemoglobin 11.3, WBC 10.6, platelet count 236,000, 84% segs, 6% lymphs, 3% eosinophils. Sodium 138, potassium 5.2, bicarbonate 23, creatinine 7.6, lactate 0.7. Liver function test normal. Lipase 320. Troponin negative. Urinalysis 3+ protein, 2+ blood, rbc's 3-10, wbc's 0-5. CT scan as noted above. IMPRESSION: A 52-year-old seen emergently in the Emergency Room holding area with acute abdomen following irrigation of his peritoneal dialysis catheter. I am suspecting a complication involving the sigmoid colon. There is inflammatory change in this region. Suspect possible perforation. The patient has end-stage renal disease. Also has diabetes. No other immunosuppressants on-board. He is anticoagulated. RECOMMENDATIONS: We will continue with broad antibiotic coverage. He has received vancomycin, and I just ordered a dose of Zosyn. Gram-negative and Gram-positive organisms including healthcare-associated organisms, aerobic and anaerobic. General surgery has been consulted. I have discussed the case with nursing staff at the bedside, Nephrology and Emergency Room physician. We [address] [address] CONSULTATION Name: CHAYITO SU Room #: 240-P [facility] IN Ke.#: [id number] Admission: 10/15/17 Attend Phys: Amando Gonzalez MD Discharge: Date of : 65 Report #: [id number] will monitor in the intensive care unit and serial examinations. We will await general surgery evaluation. The patient will remain n.p.o. <ELECTRONICALLY SIGNED> By: Carlo Dodd MD 10/16/17 0945 [id number] Carlo Dodd MD /nt
--- NOTE | ~2017-10-15 | HC ---
[facility] [place] [address] CONSULTATION Name: CHAYITO SU Room #: 351-P [facility] IN ..#: [id number] Admission: 10/15/17 Attend Phys: Amando Gonzalez MD Discharge: Date of : 65 Report #: [id number] THIS REPORT FOR: //name// CC: FAM unknown Amando Gonzalez DATE OF SERVICE: 10/21/2017 HISTORY OF PRESENT ILLNESS: The patient is a 52-year-old male who has a history of hypertension, pulmonary embolism with atrial fibrillation, diabetes mellitus with end-stage renal disease and recent peritoneal dialysis catheter. He also has a history of peripheral polyneuropathy with bilateral lower extremity weakness and is a premorbid walker/ambulator. He was admitted with severe abdominal pain, noted to have early abdominal sepsis and underwent removal of the peritoneal dialysis catheter on 10/16/2017. He has been treated for a peritoneal catheter infection with peritonitis. Infectious Disease is involved. He is now scheduled to undergo a tunneled catheter. He has premorbid peripheral neuropathy and now has further generalized debilitation with his acute hospitalization and medical complexity. We are seeing him in Rehabilitation Medicine consultation. PAST MEDICAL HISTORY: Includes chronic pain syndrome with prior spinal cord stimulator that has been subsequently removed, insulin-dependent diabetes mellitus, depression, anxiety, gout, cardiac stents x 1, carpal tunnel both wrists without surgery, history of restless legs syndrome, chronic kidney disease, bilateral pulmonary embolism 07/2015. MEDICATIONS: Please see the full medication listing. This includes his vitamins, herbals, and supplements. HABITS: Former smoker, quit greater than 2 years ago. No history of alcohol abuse. ALLERGIES: TO CERTAIN FOODS; APPLE, FISH, AND SEAFOOD. SOCIAL HISTORY: He lives in an apartment alone. He has utilized a front-wheeled walker for approximately 10 years. There are no steps. He has a caregiver 7 days per week for 4 hours per day to assist with cooking, cleaning, laundry. He does not have any family in the area. REVIEW OF SYSTEMS: Did not offer any current complaints of chest pain, shortness of breath, or current abdominal discomfort. He notes it is improved since the surgery. He has numbness of both distal lower extremities and distal weakness. PHYSICAL EXAMINATION: [facility] [address] [place] [address] CONSULTATION Name: CHAYITO SU Room #: 351-P [facility] IN .R.#: [id number] Admission: 10/15/17 Attend Phys: Amando Gonzalez MD Discharge: Date of : 65 Report #: [id number] GENERAL: He is a pleasant 52-year-old male, in no obvious distress. VITAL SIGNS: Last recorded temperature 98.6, pulse 98, respirations 24, blood pressure 201/102. ABDOMEN: The postoperative area is dressed. NEUROLOGIC: He is alert, oriented, appears to be a good historian. Facies are symmetric. He has functional range of motion of the upper extremity, strength is grade 4 to 4-/5, DTRs are trace to 1. In his lower extremities, he has decreased distal sensation in bilateral lower extremities from the knees distal. Strength is a grade 4- proximally and a grade 4- to 3+ distally. DTRs are trace to 1. No focal calf swelling. He is needing mod assist with supine to sit. Gait is mod assist 80 feet with front-wheeled walker. He is dependent for lower body dressing. ASSESSMENT: This is a 52-year-old male with the following problems: 1. Peripheral polyneuropathy with bilateral lower extremity weakness. 2. Medical complexity with generalized debilitation. 3. Peritoneal catheter infection with peritonitis. 4. Sepsis, improved. 5. End-stage renal disease, requiring dialysis. 6. History of insulin-dependent diabetes mellitus. 7. Coronary artery disease status post stent. 8. History of pulmonary embolism. 9. History of atrial fibrillation. 10. Coumadin anticoagulation for the above. 11. Chronic pain syndrome. He did have a spinal cord stimulator that was removed in the past. 12. Gout. 13. Restless legs syndrome. 14. Anxiety with depression. PLAN: He certainly may be a candidate for an acute in-hospital inpatient rehabilitation stay. He is to get the tunneled catheter today. He has been needing mod assist for basic transfers and short distance ambulation and has been needing considerable assistance for dressing at this time. He does have limited assistance at home. We will be glad to follow along with you regarding his rehab therapy needs. Insurance issues will need to be checked. By: [id number] Jose Alejandro Leon MD /nt
--- NOTE | ~2017-10-15 | HC ---
[facility] [address] CONSULTATION Name: CHAYITO SU Room #: 240-P [facility] IN M.R.#: [id number] Admission: 10/15/17 Attend Phys: Amando Gonzalez MD Discharge: Date of : 65 Report #: [id number] THIS REPORT FOR: //name// CC: FAM unknown Amando Gonzalez DATE OF SERVICE: 10/15/2017 REFERRING PROVIDER: Amando Gonzalez MD REASON FOR CONSULT: Abdominal pain. HISTORY OF PRESENT ILLNESS: The patient is a 52-year-old male with a history of end-stage renal disease for which he underwent placement of a peritoneal dialysis catheter 3 weeks ago at [facility] by Dr. Lawrence Corona. The patient was doing quite well until this morning when he presented for a weekly flush at his dialysis center where he states they were able to flush fluid and air into the catheter; however, were unable to aspirate any of the fluid back. Unfortunately, the patient had severe sudden onset abdominal pain with this and presented to the Emergency Room for evaluation. Workup here in the Emergency Room in the form of laboratories and an abdominal x-ray had been obtained. The patient's labs were largely within normal limits consistent with his end-stage renal disease and his abdominal x-ray showed a nonspecific bowel gas pattern without evidence of obstruction. The patient does have a significant amount of retained stool within his colon. The patient therefore underwent a CT scan of the abdomen and pelvis, which at this point is not transcribed; however, I have reviewed this in detail with Dr. Lawrence Clark of the Radiology Department and it shows presence of his peritoneal dialysis catheter in place, residing within the pelvis. There is a small amount of free air in the upper abdomen consistent with recent flushing of the catheter and there is mild inflammatory stranding throughout the mesentery near the catheter concerning for early infectious findings suspected to be due to contaminated flushing. There is no significant free fluid in the abdomen as is typically seen with a perforated viscus. As the patient is exquisitely tender and uncomfortable, he is being admitted and I am asked to evaluate from a surgical standpoint, otherwise. PAST MEDICAL HISTORY: Hypertension, pulmonary embolism, atrial fibrillation, diabetes mellitus, anxiety with depression, end-stage renal disease, on dialysis. He also has fibromyalgia and chronic pain syndrome. HOME MEDICATIONS: Insulin, Cymbalta, Veltassa, sodium bicarbonate, desipramine, NovoLog, Pepcid, Flomax, Symbicort, Catapres, Valium, Latuda, Norflex, [place], Coumadin, albuterol, Lipitor, metoprolol, amlodipine and trazodone. ALLERGIES: APPLES, SEAFOOD AND FISH. [address] [address] CONSULTATION Name: CHAYITO SU Room #: 240-P [facility] IN M.R.#: [id number] Admission: 10/15/17 Attend Phys: Amando Gonzalez MD Discharge: Date of : 65 Report #: [id number] FAMILY HISTORY: Reviewed and noncontributory. SOCIAL HISTORY: The patient does not currently utilize tobacco, alcohol or illicit drugs. REVIEW OF SYSTEMS: GENERAL: The patient denies nocturnal fevers or chills. HEENT: No change in vision, change in hearing. NECK: No swelling or difficulty swallowing. HEART: No chest pain or palpitations. LUNGS: No cough or shortness of breath. ABDOMEN: No prior abdominal pain, nausea or vomiting. GENITOURINARY: No dysuria or hematuria. ENDOCRINE: No polyuria, polydipsia. HEMATOLOGIC: No history of bleeding or easy bruising. EXTREMITIES: No history weakness or limited range of motion. NEUROLOGIC: No history of syncope or near syncopal episodes. SKIN AND INTEGUMENT: No history of abnormal lesions or moles. PSYCHIATRIC: History of anxiety with depression. PHYSICAL EXAMINATION: VITAL SIGNS: Temperature 98.9, pulse 74, respirations 18, blood pressure 167/101. He is 6 feet 0 inches tall and weighs 238 pounds. GENERAL: He is alert and oriented, in mild distress. HEENT: Normocephalic, atraumatic. Pupils equal, round, reactive to light. NECK: Supple without lymphadenopathy. Trachea midline. HEART: Regular rate and rhythm. LUNGS: Clear to auscultation bilaterally with diminished air entry at the bases bilaterally. ABDOMEN: Obese, soft, nondistended. He does have tenderness to palpation diffusely, but does not have any guarding, rebound or peritoneal signs or symptoms otherwise. GENITOURINARY: Normal external male genitalia. EXTREMITIES: No clubbing, cyanosis, but does have 2+ edema of the bilateral lower extremities. NEUROLOGIC: Cranial nerves 2-12 are grossly intact. PSYCHIATRIC: Normal mood and affect. SKIN AND INTEGUMENT: No abnormal lesions or moles. LABORATORY AND X-RAY DATA: CBC shows a white blood cell count of 10.6 thousand, hemoglobin 11.3, platelets 236,000. He does have a slight left shift of 84% neutrophils. Creatinine is 7.6 consistent with his end-stage renal disease. Lipase 320, which is normal. Liver function enzymes are normal. Albumin is slightly low at 3.1. Urinalysis negative. Abdominal x-ray shows constipation, but otherwise nonspecific bowel gas pattern and CT scan of the abdomen and [address] [address] CONSULTATION Name: CHAYITO SU Room #: 240-P [facility] IN [facility].#: [id number] Admission: 10/15/17 Attend Phys: Amando Gonzalez MD Discharge: Date of : 65 Report #: [id number] pelvis was reviewed with Dr. Lawrence Clark of Radiology showing the catheter residing in an appropriate location in the pelvis with some mesenteric stranding concerning for peritoneal inflammation likely from a contaminated flush of the catheter and there is scant free air consistent with recent flushing as well. No obvious perforation, free fluid, otherwise. ASSESSMENT AND PLAN: A 52-year-old obese male with multiple medical problems who underwent flushing of his dialysis catheter earlier today with onset of abdominal pain. The patient does have a small amount of free air in the abdomen consistent with recent flushing and has mesenteric inflammation as well as significant constipation. The patient has been admitted and I recommend continuation of IV fluids per Nephrology's discretion and IV antibiotic therapeutic to cover for possible early bacterial peritonitis, suspected to be from a contaminated flush of his peritoneal dialysis catheter but we cannot rule out an overt perforation of the bowel at this time. The patient will hopefully improve with time and his physical exam may be skewed by his chronic pain syndrome and likely intolerance to pain. I spent nearly 90 minutes in evaluation of this patient, reviewing his workup, discussing with the patient and his family, as well as all other providers involved in his care. I sincerely appreciate this consult. Luckily, he does not appear toxic at this time, so we will continue serial abdominal exams, ongoing lab evaluation and imaging as needed. I will follow very closely and leave all further recommendations in the patient's chart as appropriate. <ELECTRONICALLY SIGNED> By: Sunita Washington MD, FACS 10/16/17 0809 [id number] Sunita Washington MD, FACS /nt
--- NOTE | ~2017-10-15 | O ---
[address] [address] OPERATIVE REPORT Name: CHAYITO SU Room #: 240-P [facility] IN M.R.#: [id number] Admission: 10/15/17 Attend Phys: Amando Gonzalez MD Discharge: Date of : 65 Report #: [id number] THIS REPORT FOR: //name// CC: FAM unknown Amando Gonzalez DATE OF SERVICE: 10/16/2017 PREOPERATIVE DIAGNOSES: 1. Early abdominal sepsis. 2. Indwelling peritoneal dialysis catheter with suspected infection. 3. Hypertension. 4. Prior pulmonary embolism. 5. Atrial fibrillation. 6. Diabetes mellitus. 7. End-stage renal disease. 8. Fibromyalgia. 9. Chronic pain syndrome. POSTOPERATIVE DIAGNOSES: 1. Early abdominal sepsis. 2. Indwelling peritoneal dialysis catheter with gross stigmata of infection. 3. Hypertension. 4. Prior pulmonary embolism. 5. Atrial fibrillation. 6. Diabetes mellitus. 7. End-stage renal disease. 8. Fibromyalgia. 9. Chronic pain syndrome. PROCEDURES PERFORMED: 1. Open removal of indwelling infected peritoneal dialysis catheter. 2. Abdominal washout and evaluation. SURGEON: Sunita Washington M.D. DRY ROOM OPERATOR: None. ANESTHESIA: General endotracheal anesthesia. ESTIMATED BLOOD LOSS: Minimal (less than 5 mL). COMPLICATIONS: None appreciated. SPECIMENS: Distal one-third of the peritoneal dialysis catheter to microbiology for culture and sensitivity. [address] [address] OPERATIVE REPORT Name: CHAYITO SU Room #: 240-P [facility] IN [facility]#: [id number] Admission: 10/15/17 Attend Phys: Amando Gonzalez MD Discharge: Date of : 65 Report #: [id number] INDICATIONS: The patient is a 52-year-old overweight -[place] male with a history of multiple medical issues as delineated above who presented to the Emergency Room yesterday afternoon with complaints of ongoing abdominal pain from his catheter for the past 3 weeks that worsened acutely yesterday morning during attempts at flushing the catheter at the dialysis center. Workup showed the patient to be afebrile with a normal white blood cell count and a normal lactate at 0.7. An abdominal x-ray showed nonspecific findings and a followup CT scan showed trace free air in the upper abdomen that was scant in amount and significantly less, that is usually seen with perforated viscus and no evidence of any free fluid in the abdomen. The patient's catheter was flushed by the dialysis nurse and when it would not aspirate, she used the syringe "like a toilet plunger" to try and get it to function. While admitted, he was tachycardic to low 100s and had diffuse abdominal pain; however, no evidence of rigidity, rebound or guarding that would be consistent with a surgical abdomen. The patient was therefore monitored and reevaluated last evening around midnight where he had continued abdominal pain and his white blood cell count was 13,000 with a lactate of 0.9. The patient's procalcitonin was elevated at 15; however, he again had no evidence of active peritonitis and a surgical abdomen. The patient was monitored overnight once again and while he continues with abdominal pain, repeat CBC and lactate this morning showed his lactate improved from 0.9 to 0.8 and his white blood cell count was equivocal at approximately 13,000. A followup CT scan showed complete resolution of free air with no free fluid whatsoever in the abdomen. His mesenteric inflammation around the catheter that was seen on CT yesterday has worsened raising the high degree of concern of an infected peritoneal dialysis catheter and as such, indication was for removal today. DESCRIPTION OF PROCEDURE: After explaining the risks, benefits and alternatives of the procedure with the patient in detail and obtaining consent, the patient was brought to the operating room and placed supine on the operating room table. After conducting a thorough timeout procedure verifying correct patient and procedure, the patient was given general endotracheal anesthesia. Once adequate anesthesia was obtained, his SCDs were hooked up to pneumatic compression device and he was given a preoperative dose of antibiotics in line with the SCIP protocol as he is already on an inpatient regimen of antibiotic therapy. The patient's abdomen was now prepped and draped in standard surgical sterile fashion with the peritoneal dialysis catheter prepped into the field. Attempts at gentle withdrawal of the catheter were unsuccessful and as I was unable to obtain his operative report from the peritoneal dialysis catheter placement, this required making a counterincision at the site of what appears to be a healing wound in the lower midline, which was likely from the time of placement. This was anesthetized with 10 mL of 0.5% Marcaine with epinephrine and #15 bladed scalpel was used to create a 2 inch long incision overlying the prior incision site. Electrocautery was used to carry this down through skin and subcutaneous tissues to ensure hemostasis and there was significant edema in the [facility] [address] [place] [address] OPERATIVE REPORT Name: CHAYITO SU Room #: 240-P [facility] IN M.R.#: [id number] Admission: 10/15/17 Attend Phys: Amando Gonzalez MD Discharge: Date of : 65 Report #: [id number] abdominal wall. This tracked down to the catheter, which attempts at withdrawal were unsuccessful and further dissection showed evidence of a synthetic suture anchoring the Dacron cuff to the fascial defect itself. This suture was cut and removed in full. This then allowed the fascial incision to open, which appeared to be open for the entire 2 inch length of the skin incision. I was now able to remove the catheter and the distal one-third was cut off and passed off for microbiologic analysis. The catheter tracking through the abdominal wall showed marked edema as well and the Dacron cuff was dissected out from the lower midline incision and I was ultimately able to remove the catheter and passed it off the field. Evaluation of the abdominal wound showed since the fascia was now opened for 2 inches by simply cutting the suture anchoring the catheter in place, I was able to enter into the abdominal domain with ease. There was no fluid in the abdomen whatsoever. Running the small bowel with Kendal clamps from the ileocecal valve proximally on 3 occasions showed no evidence of pathology. The colon was evaluated and did not show any pathology either. I was able to elevate the peritoneum with Conner retractors for better visualization and again saw no evidence of free fluid. A pool suction device was placed low in the pelvis gently with finger guidance and there was no evidence of fluid once again. The mesentery of the small bowel and colon did appear thickened and hyperemic as did the peritoneal lining, all consistent with an infected peritoneal dialysis catheter. Again, I saw no evidence of gross perforation at this juncture. The abdomen was irrigated with normal saline and the irrigant ran clear. I closed the fascial incision using 0 PDS suture in standard running fashion. The wound was irrigated and closed with skin lizzeth completing the procedure. At the end of the procedure, all instrument, needle and sponge counts were correct. The patient tolerated the procedure without incident, was awakened in the operating room and transitioned to the recovery room in stable condition with no apparent complications. <ELECTRONICALLY SIGNED> By: Sunita Washington MD, FACS 10/17/17 [id number] Sunita Washington MD, FACS /nt
--- NOTE | ~2017-10-15 | HC ---
[facility] [place] [address] CONSULTATION Name: CHAYITO SU Room #: 351-P [facility] IN ..#: [id number] Admission: 10/15/17 Attend Phys: Amando Gonzalez MD Discharge: 10/22/17 Date of : 65 Report #: [id number] THIS REPORT FOR: //name// CC: FAM unknown Amando Gonzalez DATE OF SERVICE: 10/15/2017 NEPHROLOGY CONSULTATION ATTENDING PHYSICIAN: Amando Gonzalez M.D. REASON FOR CONSULTATION: CKD stage 5 and peritonitis. HISTORY OF PRESENT ILLNESS: This is a pleasant 52-year-old gentleman ____. He was in for routine flush and there was some difficulty with fluid exchange. After attempts at flushed, installation and withdrawal of the fluid, he developed a very sudden and very severe abdominal pain, which worsened. He came to the Emergency Room ____ and sudden onset of severe abdominal pain which has been worsening in the Emergency Room. PAST MEDICAL HISTORY: Longstanding diabetes mellitus, longstanding hypertension, progressive renal failure, CKD stage 5 and now preparation for dialysis. He also has had a history of atrial fibrillation and pulmonary emboli in the past. He has been on anticoagulation in the past. PAST MEDICAL HISTORY: There is some history of coronary artery disease. He also has some chronic back pain. HOME MEDICATIONS: Listed include albuterol inhaler, amlodipine 10 mg daily, Lipitor 40 mg daily, clonidine 0.2 mg at bedtime, desipramine 25 mg daily, diazepam 10 mg daily, Cymbalta 20 mg daily, famotidine 20 mg daily, hydrocodone, insulin, metoprolol 50 mg daily, sodium bicarbonate tablets, tamsulosin 0.4 mg daily, Coumadin. SOCIAL HISTORY: Unremarkable. REVIEW OF SYSTEMS: The patient's review of systems cannot be obtained ____. He has had some uremic symptoms, some nausea and vomiting as well recently, not short of air. No recent chest pain or palpitations. PHYSICAL EXAMINATION: GENERAL: This is an ill-appearing gentleman in great distress. SKIN: Unremarkable. SKELETAL: Well developed, well nourished. HEENT: Extraocular movements are full. No scleral icterus. Hearing and vision [facility] [address] [place] [address] CONSULTATION Name: CHAYITO SU Room #: 351-P [facility] IN [facility].#: [id number] Admission: 10/15/17 Attend Phys: Amando Gonzalez MD Discharge: 10/22/17 Date of : 65 Report #: [id number] intact. Mucous membranes moist. NECK: Supple. CHEST: Clear to auscultation. HEART: Regular. ABDOMEN: Extremely tender and quiet and even the slightest palpations cause him very severe pain. EXTREMITIES: Showed 2+ peripheral edema. LABORATORY DATA: The hemoglobin is 11.3, white count initially 10.6, platelets 236. Sodium 138, potassium 5.2, chloride 105, bicarbonate 23, BUN 62, creatinine 7.6. ASSESSMENT AND PLAN: 1. Peritonitis. He appears to have developed perforation at the time of his catheter placement with acute peritonitis that should require surgical intervention. 2. End-stage renal disease ____ with hemodialysis catheter. 3. Longstanding diabetes mellitus. 4. Hypertension. 5. History of atrial fibrillation. <ELECTRONICALLY SIGNED> By: Britton Estrada MD 10/24/17 1045 [id number] [id number] Britton Estrada MD /nt
--- NOTE | ~2017-10-15 | EKG ---
[place] [address] [facility] [place] [employer] [address] ELECTROCARDIOGRAM REPORT Name: CHAYITO SU Room #: 240-P ADM IN M.R.#: [id number] Admission: 10/15/17 Attend Phys: Amando Gonzalez MD Discharge: Date of : 65 Report #: [id number] THIS REPORT FOR: //name// [facility] ED Test Date: 2017-10-15 Test Time: 15:05:02 Pat Name: CHAYITO SU Department: Room: Gender: M Ironmolder: MZOOK : 1965 Requested By: Carlo Olmos Order Number: [id number] MD: Abhi Watkins Measurements Intervals [place] Rate: 104 P: 49 MD: 201 QRS: -28 QRSD: 76 T: 53 QT: 342 QTc: 450 Interpretive Statements Sinus tachycardia Borderline prolonged MD interval Borderline left axis deviation Baseline wander in lead(s) V2 Compared to ECG 12/14/2016 20:47:39 heart rate has increased Electronically Signed On 10-16-2017 8:04:58 CDT by Abhi Watkins [email or web address] <ELECTRONICALLY SIGNED> By: Abhi Watkins MD, [facility] 10/16/17 0804 1505 1505 Abhi Watkins MD, [facility] /EPI
[~2017-10-15 14:02] MED LIST changes: -COUMADIN 3 MG TA3 M1 PO
[2017-10-15 15:06] LABS: URINE BILIRUBIN NEGATIVE (Negative); URINE BLOOD 2+ (Negative); URINE CLARITY CLEAR; URINE COLOR YELLOW; URINE GLUCOSE-RANDOM* TRACE (Negative); URINE KETONES NEGATIVE (Negative); URINE LEUKOCYTES-REFLEX NEGATIVE (Negative); URINE NITRITE-REFLEX NEGATIVE (Negative); URINE PROTEIN (DIPSTICK) 3+ (Negative); URINE UROBILINOGEN 0.2 E.U./dl (0.2-1.0)
[2017-10-15 15:06] LABS: BASOPHILS 0.3 % (0.0-2.0); EOSINOPHILS 3.3 % (0.0-3.0); HEMATOCRIT 32.8 % (42.0-52.0); HEMOGLOBIN 11.3 gm/dL (14.0-18.0); LYMPHOCYTES 6.4 % (24.0-44.0); MCH 30.3 pg (26.0-34.0); MCHC 34.4 g/dL (28.0-37.0); MCV 88.1 fL (80.0-100.0); MONOCYTES 5.8 % (1.0-8.0); PLATELET COUNT 236 thou/uL (150-400); POLYS 84.2 % (36.0-66.0); RBC 3.72 mil/uL (4.50-6.00); RDW 13.5 % (10.5-14.5); WBC 10.6 thou/uL (4.0-11.0)
[2017-10-15 15:16] LABS: ANION GAP 10 mmol/L (7-16); BUN 62 mg/dL (7-18); CALCIUM 7.9 mg/dL (8.5-10.1); CHLORIDE 105 mmol/L (98-107); CO2 23 mmol/L (21-32); CREATININE 7.6 mg/dL (0.7-1.3); GLUCOSE 91 mg/dL (74-106); POTASSIUM 5.2 mmol/L (3.5-5.1); SODIUM 138 mmol/L (136-145)
[2017-10-15 15:16] LABS: BACTERIA-REFLEX None Seen /HPF (None Seen); CASTS None Seen /LPF (None Seen); CRYSTALS None Seen /LPF (None Seen); MUCUS 0-3 Light strn/LPF (None Seen); SQUAMOUS 0-3 Few /LPF (0-3); URINE RBC 3-10 Few /HPF (0-2); URINE WBC-REFLEX 0-5 Rare /HPF (0-5)
[2017-10-15 15:25] LABS: ALBUMIN 3.1 g/dL (3.4-5.0); LIPASE 320 U/L (73-393); SGOT 15 U/L (15-37); SGPT 17 U/L (30-65); TOTAL BILIRUBIN 0.3 mg/dL (<0.1-1.0); TOTAL PROTEIN 7.6 g/dL (6.4-8.2); TROPONIN-I < 0.04 ng/mL (<0.06)
[2017-10-15] MEDS ORDERED: COUMADIN 3 MG TA3 M1 PO (17:09)
[2017-10-15] MEDS ORDERED: COUMADIN 1MG TAB1 M1 PO (17:09)
[2017-10-15 18:43] LABS: APTT 34.5 Seconds (24.5-32.8); INR 1.6; PROTIME 15.9 Seconds (9.3-11.4)
[2017-10-15] MEDS ORDERED: COUMADIN 5 MG TA5 M1 PO (19:30)
[2017-10-15 22:30] LABS: ABSOLUTE NEUTROPHILS 12.1 thou/uL (1.4-8.2); BASOPHILS 0.3 % (0.0-2.0); EOSINOPHILS 0.8 % (0.0-3.0); HEMOGLOBIN 10.8 gm/dL (14.0-18.0); LYMPHOCYTES 3.9 % (24.0-44.0); MCH 30.3 pg (26.0-34.0); MCHC 33.7 g/dL (28.0-37.0); MCV 89.9 fL (80.0-100.0); MONOCYTES 5.6 % (1.0-8.0); PLATELET COUNT 207 thou/uL (150-400); POLYS 89.4 % (36.0-66.0); RBC 3.56 mil/uL (4.50-6.00); RDW 13.5 % (10.5-14.5); WBC 13.6 thou/uL (4.0-11.0)
[2017-10-16] VITALS (55 sets, daily range): BP systolic 162–249; BP diastolic 58–132
[2017-10-16 07:00] LABS: CALCIUM 7.6 mg/dL (8.5-10.1); CREATININE 7.8 mg/dL (0.7-1.3); MAGNESIUM 1.9 mg/dL (1.8-2.4); PHOSPHORUS 4.3 mg/dL (2.5-4.9); POTASSIUM 5.6 mmol/L (3.5-5.1)
[2017-10-16 07:18] LABS: ABSOLUTE NEUTROPHILS 11.7 thou/uL (1.4-8.2); BASOPHILS 0.4 % (0.0-2.0); EOSINOPHILS 1.3 % (0.0-3.0); HEMOGLOBIN 10.6 gm/dL (14.0-18.0); LYMPHOCYTES 4.3 % (24.0-44.0); MCH 30.4 pg (26.0-34.0); MCHC 34.3 g/dL (28.0-37.0); MCV 88.6 fL (80.0-100.0); MONOCYTES 6.4 % (1.0-8.0); PLATELET COUNT 195 thou/uL (150-400); POLYS 87.6 % (36.0-66.0); RDW 13.5 % (10.5-14.5); WBC 13.4 thou/uL (4.0-11.0)
[2017-10-17] VITALS (23 sets, daily range): BP systolic 134–262; BP diastolic 76–112
[2017-10-17 00:06] LABS: HBsAG-EMPLOYEE EXPOSURE Negative (Negative); HCV AB-EMPLOYEE EXPOSURE 0.2 (0.0-0.9)
[2017-10-17 05:35] LABS: ABSOLUTE NEUTROPHILS 8.6 thou/uL (1.4-8.2); BASOPHILS 0.5 % (0.0-2.0); EOSINOPHILS 0.7 % (0.0-3.0); HEMOGLOBIN 9.7 gm/dL (14.0-18.0); LYMPHOCYTES 4.2 % (24.0-44.0); MCH 30.3 pg (26.0-34.0); MCHC 33.6 g/dL (28.0-37.0); MCV 90.2 fL (80.0-100.0); MONOCYTES 8.9 % (1.0-8.0); PLATELET COUNT 202 thou/uL (150-400); POLYS 85.7 % (36.0-66.0); RBC 3.22 mil/uL (4.50-6.00); RDW 13.8 % (10.5-14.5)
[2017-10-17 05:51] LABS: ALBUMIN 2.1 g/dL (3.4-5.0); CALCIUM 8.1 mg/dL (8.5-10.1); CREATININE 6.6 mg/dL (0.7-1.3); PHOSPHORUS 5.8 mg/dL (2.5-4.9); POTASSIUM 4.9 mmol/L (3.5-5.1); TOTAL BILIRUBIN 0.6 mg/dL (<0.1-1.0); TOTAL PROTEIN 6.3 g/dL (6.4-8.2)
[2017-10-18 04:47] VITALS: BP 174/84
[2017-10-18 07:05] LABS: HEMATOCRIT 27.3 % (42.0-52.0); HEMOGLOBIN 9.4 gm/dL (14.0-18.0); MCH 30.6 pg (26.0-34.0); MCHC 34.4 g/dL (28.0-37.0); MCV 88.9 fL (80.0-100.0); RBC 3.07 mil/uL (4.50-6.00); RDW 13.2 % (10.5-14.5); WBC 8.6 thou/uL (4.0-11.0)
[2017-10-18 07:23] LABS: ALBUMIN 2.1 g/dL (3.4-5.0); CALCIUM 8.1 mg/dL (8.5-10.1); PHOSPHORUS 6.9 mg/dL (2.5-4.9); POTASSIUM 4.7 mmol/L (3.5-5.1)
[2017-10-18 07:24] LABS: CREATININE 7.9 mg/dL (0.7-1.3)
[2017-10-18 11:34] VITALS: BP 213/113
[2017-10-18 15:35] VITALS: BP 143/90
[2017-10-18 20:28] VITALS: BP 141/87
[2017-10-19 04:50] VITALS: BP 164/83
[2017-10-19 06:28] LABS: ALBUMIN 2.3 g/dL (3.4-5.0); CALCIUM 8.2 mg/dL (8.5-10.1); CREATININE 7.1 mg/dL (0.7-1.3); PHOSPHORUS 6.8 mg/dL (2.5-4.9); POTASSIUM 4.3 mmol/L (3.5-5.1)
[2017-10-19 07:15] VITALS: BP 185/92
[2017-10-19 11:26] VITALS: BP 173/106
[2017-10-19 16:44] VITALS: BP 156/93
[2017-10-19 19:55] VITALS: BP 183/92
[2017-10-19 23:41] VITALS: BP 173/93
[2017-10-20 03:50] VITALS: BP 177/93
[2017-10-20 07:38] VITALS: BP 182/100
[2017-10-20 11:13] VITALS: BP 181/96
[2017-10-20 15:41] VITALS: BP 179/106
[2017-10-20 19:30] VITALS: BP 187/96
[2017-10-21] VITALS: BP 177/92
[2017-10-21 05:00] VITALS: BP 179/96
[2017-10-21 06:44] LABS: HEMOGLOBIN 9.3 gm/dL (14.0-18.0); MCH 30.8 pg (26.0-34.0); MCHC 34.5 g/dL (28.0-37.0); MCV 89.3 fL (80.0-100.0); RBC 3.02 mil/uL (4.50-6.00); RDW 12.9 % (10.5-14.5); WBC 5.5 thou/uL (4.0-11.0)
[2017-10-21 06:54] LABS: INR 1.1; PROTIME 10.8 Seconds (9.3-11.4)
[2017-10-21 07:11] LABS: ALBUMIN 2.2 g/dL (3.4-5.0); CALCIUM 7.8 mg/dL (8.5-10.1); POTASSIUM 4.4 mmol/L (3.5-5.1); TOTAL BILIRUBIN 0.5 mg/dL (<0.1-1.0); TOTAL PROTEIN 6.9 g/dL (6.4-8.2)
[2017-10-21 07:12] LABS: CREATININE 9.6 mg/dL (0.7-1.3)
[2017-10-21 07:29] VITALS: BP 201/102
[2017-10-21 11:17] VITALS: BP 175/94
[2017-10-21 20:25] VITALS: BP 198/104
[2017-10-21 23:50] VITALS: BP 182/101
[2017-10-22 03:40] VITALS: BP 161/86
[2017-10-22 07:33] VITALS: BP 187/107
[2017-10-22 11:15] VITALS: BP 154/91
[2017-10-22] MEDS ORDERED: UNASYN 3 GM VIAL3 G1 IV (12:40)
== END 2017-10-22 13:29 | DRG 981 ==
LOC: ER 14:02 → EROBS 15:23 → ICU 19:18 → 3W 10-17 16:41
PROVIDERS: Emergency Medicine; Hospitalist; Internal Medicine Nephrology; Nurse Practitioner; Surgery
PROC: B548ZZA Ultrasonography of Superior Vena Cava, Guidance (ICD-10-PCS; principal; 2017-10-16)
PROC: 02HV33Z Insertion of Infusion Device into Superior Vena Cava, Percutaneous Approach (ICD-10-PCS; principal; 2017-10-16)
PROC: B5181ZA Fluoroscopy of Superior Vena Cava using Low Osmolar Contrast, Guidance (ICD-10-PCS; principal; 2017-10-16)
PROC: 0WPG03Z Removal of Infusion Device from Peritoneal Cavity, Open Approach (ICD-10-PCS; principal; 2017-10-16)
PROC: 5A1D70Z Performance of Urinary Filtration, Intermittent, Less than 6 Hours Per Day (ICD-10-PCS; principal; 2017-10-16)
PROC: 5A1D70Z Performance of Urinary Filtration, Intermittent, Less than 6 Hours Per Day (ICD-10-PCS; 2017-10-17)
PROC: 5A1D70Z Performance of Urinary Filtration, Intermittent, Less than 6 Hours Per Day (ICD-10-PCS; 2017-10-19)
PROC: 5A1D70Z Performance of Urinary Filtration, Intermittent, Less than 6 Hours Per Day (ICD-10-PCS; 2017-10-21)
DX: T85.71XA Infection and inflammatory reaction due to peritoneal dialysis catheter, initial encounter (principal); K65.9 Peritonitis, unspecified; N18.6 End stage renal disease; A41.9 Sepsis, unspecified organism; I12.0 Hypertensive chronic kidney disease with stage 5 chronic kidney disease or end stage renal disease; T85.611A Breakdown (mechanical) of intraperitoneal dialysis catheter, initial encounter; E11.22 Type 2 diabetes mellitus with diabetic chronic kidney disease; E78.5 Hyperlipidemia, unspecified; M79.7 Fibromyalgia; F32.9 Major depressive disorder, single episode, unspecified; F41.9 Anxiety disorder, unspecified; M10.9 Gout, unspecified; I48.0 Paroxysmal atrial fibrillation; E11.42 Type 2 diabetes mellitus with diabetic polyneuropathy; E87.5 Hyperkalemia; I25.10 Atherosclerotic heart disease of native coronary artery without angina pectoris; G89.4 Chronic pain syndrome; G25.81 Restless legs syndrome; Y84.1 Kidney dialysis as the cause of abnormal reaction of the patient, or of later complication, without mention of misadventure at the time of the procedure; E66.9 Obesity, unspecified; Z68.32 Body mass index [BMI] 32.0-32.9, adult; Z95.5 Presence of coronary angioplasty implant and graft; Z87.891 Personal history of nicotine dependence; Z86.711 Personal history of pulmonary embolism; Z99.2 Dependence on renal dialysis; Z79.01 Long term (current) use of anticoagulants; Z79.4 Long term (current) use of insulin; Z79.899 Other long term (current) drug therapy; Z91.013 Allergy to seafood; Z91.018 Allergy to other foods; Y92.89 Other specified places as the place of occurrence of the external cause
CPT/HCPCS: 10078; 10779; 32100; 50010; 50101; 50386; 50403; 51412; 56525; 56527; 62110; 62900; 70005

== ENCOUNTER → 2017-10-15 | Outpatient (CLI) | payer OTHER ==
[~2017-10-15] MED LIST changes: +COUMADIN 3 MG TA3 M1 PO; +NORFLEX100 MG PO; +SODIUM BICARBO650 M3 PO
== END ==
LOC: RAD 13:16
DX: R10.9 Unspecified abdominal pain (principal)

== ENCOUNTER 2017-10-22 09:17 | Inpatient (IN) | payer OTHER ==
[~2017-10-22] VITALS: Ht 182.9 cm; Wt 100.7 kg
--- NOTE | ~2017-10-22 | HC ---
[facility] [place] [address] CONSULTATION Name: CHAYITO SU Room #: 515-P [facility] IN M.R.#: [id number] Admission: 10/22/17 Attend Phys: Jose Alejandro Leon MD Discharge: 10/28/17 Date of : 65 Report #: [id number] THIS REPORT FOR: //name// CC: Jose Alejandro Leon [facility] unknown DATE OF SERVICE: 10/26/2017 ATTENDING PHYSICIAN: Jose Alejandro Leon MD. SEPARATOR TENDER: Regis Arvizu, PhD. CLINICAL PRESENTATION: The patient is a 52-year-old male admitted to the rehab unit at [facility] for comprehensive inpatient rehabilitation program to improve functional mobility, activities of daily living and self-care and mental status secondary to deficits from peripheral polyneuropathy with bilateral lower extremity weakness. His diagnoses include medical complexity with generalized debility, peritoneal catheter infection with peritonitis, sepsis, end-stage renal disease requiring dialysis, history of insulin-dependent diabetes mellitus, coronary artery disease status post stent, history of pulmonary embolism, history of atrial fibrillation, Coumadin anticoagulation, chronic pain syndrome, gout, restless legs syndrome, anxiety with depression. A complete description of his medical condition and history can be found in his medical record. Neuropsychological consultation was requested to provide assistance in the assessment of cognitive and emotional status and to provide recommendations and services. Prior to this most recent admission, the patient reports living independently in his own home. He reports having pain in his stomach as a result of the removal of the peritoneal catheter. The catheter is described as having been connected to his stomach, which created the subsequent need for its removal. The patient has 4 children. He reports having been able to maintain independence with instrumental activities of daily living, including driving, managing his medication, nutrition and finances. The patient was initially seen in 12/2016 for a neurobehavioral status exam. He has been on disability since the year 1999. Prior to disability was employed for [employer]. He is a high school graduate. TECHNIQUES UTILIZED: Clinical interview, review of medical records, staff consultation and behavioral observation, mini mental status exam 2 standard version and clock drawing. EXAMINATION FINDINGS: The patient was alert and cooperative with the assessment. He does not report auditory or visual hallucinations. There is no evidence of aphasia. His thoughts are logical and goal oriented. There is no [facility] [address] [place] [address] CONSULTATION Name: CHAYITO SU Room #: 515-P DIS IN M.R.#: [id number] Admission: 10/22/17 Attend Phys: Jose Alejandro Leon MD Discharge: 10/28/17 Date of : 65 Report #: [id number] evidence of thought disorder. He accurately described the reason for his hospitalization. There is no reported difficulty with memory, word finding. However, he does indicate difficulty with sleep and fatigue during the day. There is no reported history of alcohol, tobacco or cannabis use. He reports social support is good and primarily centered on family. His performance on the MMSE 2 brief version is within normal limits with a raw score of 15 of 16. He was 5/5 for orientation to time and place. Initial registration was 3/3. He was 2/3 for immediate recall of 3 items after a brief time delay and distraction. The patient was 3/5 for serial sevens, 2/2 for naming, 1/1 for repetition, 3/3 for auditory comprehension. He was able to copy a simple geometric design. He was able to draw a clock, space correctly the numbers and set the hands at designated time. Primary concerns at this time are related more to depression. DIAGNOSTIC IMPRESSION: Unspecified depressive disorder with anxiety. RECOMMENDATIONS: Continued psychological support as needed. He is utilizing an antidepressant. The patient will likely show improvement in mood upon return to a more regular routine. Verbal praise and complements about participation in therapies will also assist his overall engagement with treatment. He appears motivated and participating in therapies as necessary. Thank you very much for allowing me to provide the consultation on this patient. <ELECTRONICALLY SIGNED> By: Regis Arvizu, PhD 11/02/17 1558 [id number] [id number] Regis Arvizu, PhD /nt
--- NOTE | ~2017-10-22 | PLAN ---
[facility] [place] [address] [place] [address] REHAB UNIT PLAN OF CARE Name: CHAYITO SU Room #: 515-P ADM IN M.R.#: [id number] Admission: 10/22/17 Attend Phys: Jose Alejandro Leon MD Discharge: Date of : 65 Report #: [id number] THIS REPORT FOR: //name// CC: Jose Alejandro Leon [facility] unknown DATE OF SERVICE: 10/25/2017 PROGRESS NOTE/OVERALL PLAN OF CARE SUBJECTIVE: The patient is seen back today in followup. He is in no distress. Last recorded temperature is 97.7, pulse 89, respirations 18, blood pressure 145/69. No focal calf swelling. Transfers are standby assistance. Gait is standby assistance 250 feet front-wheeled walker. In occupational therapy, lower body dressing is supervision. ASSESSMENT: 1. Peripheral polyneuropathy with bilateral lower extremity weakness. 2. Medical complex with generalized debilitation. 3. Peritoneal catheter infection with peritonitis. 4. Sepsis, improved. 5. End-stage renal disease, requiring dialysis. 6. History of insulin-dependent diabetes mellitus. 7. Coronary artery disease, status post stent. 8. History of pulmonary embolism. 9. History of atrial fibrillation. 10. Coumadin anticoagulation. 11. Chronic pain syndrome. 12. Gout. 13. Restless leg syndrome. PLAN: The overall plan of care is based on the preadmission screen, post-admission physician evaluation and information garnered from therapy assessments. 1. Estimated length of stay is going to be through Saturday. 2. Medical prognosis is reasonably good. 3. Anticipated interventions include the interdisciplinary acute inpatient rehabilitation program. 4. Anticipated functional outcomes would be for the patient to become modified independent with transfers, mobility and ADLs so that he can return back to the home setting. 5. Discharge destination would be back home where he lives by himself and has a caregiver 4 hours per day. [facility] [address] [place] [address] REHAB UNIT PLAN OF CARE Name: CHAYITO SU Room #: 515-P ADM IN [facility].#: [id number] Admission: 10/22/17 Attend Phys: Jose Alejandro Leon MD Discharge: Date of : 65 Report #: [id number] 6. Expected therapy by discipline includes PT and OT 1-1/2 hours per day each 5 days a week throughout the duration of the acute inpatient rehabilitation stay. <ELECTRONICALLY SIGNED> By: Jose Alejandro Leon MD 10/25/17 1228 0806 0821 Jose Alejandro Leon MD /nt
--- NOTE | ~2017-10-22 | H ---
[facility] [place] [address] HISTORY AND PHYSICAL Name: CHAYITO SU Room #: 515-P ADM IN M.R.#: [id number] Admission: 10/22/17 Attend Phys: Jose Alejandro Leon MD Discharge: Date of : 65 Report #: [id number] THIS REPORT FOR: //name// CC: Jose Alejandro Leon [facility] unknown DATE OF SERVICE: 10/23/2017 HISTORY AND PHYSICAL/POSTADMISSION PHYSICIAN EVALUATION HISTORY OF PRESENT ILLNESS: The patient is a 52-year-old -Slov[place] male with history of hypertension, pulmonary embolism with atrial fibrillation, diabetes mellitus with end-stage renal disease, recent peritoneal dialysis catheter. He also has a history of a peripheral polyneuropathy with bilateral lower extremity weakness and has a premorbid walker ambulator. He was admitted originally to [facility] on 10/15/2017, with severe abdominal pain, noted to have an early abdominal sepsis and underwent removal of the peritoneal dialysis catheter on 10/16/2017. He was treated for peritoneal catheter infection with peritonitis. Infectious Disease has been involved. He was scheduled and underwent a tunneled catheter yesterday. He has the premorbid peripheral neuropathy and has further generalized debilitation with the hospitalization and has been admitted now for acute in-hospital inpatient rehabilitation. PAST MEDICAL HISTORY: Includes chronic pain syndrome with prior spinal cord stimulator that has been subsequently removed, insulin-dependent diabetes mellitus, depression, anxiety, gout, cardiac stents x 1, carpal tunnel, both wrists without surgery, history of restless leg syndrome, chronic kidney disease, bilateral pulmonary embolism on 07/24/2015. MEDICATIONS: Please see the full medication listing. This list includes vitamins, herbals, and supplements. HABITS: Former smoker, quit greater than 2 years ago. No history of alcohol abuse. ALLERGIES: CERTAIN FOODS, APPLE, FISH AND SEA FOOD. SOCIAL HISTORY: Lives in an apartment alone, utilized a front-wheeled walker for approximately 10 years. There are no steps. He has a caregiver 7 days per week for 4 hours per day to assist with cooking, cleaning, laundry. No family in the area. REVIEW OF SYSTEMS: No current complaints of chest pain, shortness of breath, abdominal discomfort. He notes the abdominal discomfort is improved post-peritoneal dialysis catheter removal. He had a tunnel catheter placed, [facility] [address] [place] [address] HISTORY AND PHYSICAL Name: CHAYITO SU Room #: 515-P [facility] IN M.R.#: [id number] Admission: 10/22/17 Attend Phys: Jose Alejandro Leon MD Discharge: Date of : 65 Report #: [id number] right upper chest wall. He has the decreased distal sensation with decreased strength of his distal lower extremities. PHYSICAL EXAMINATION: GENERAL: This is a 52-year-old -Slov[place] male in no obvious distress. He is alert, pleasant and oriented. VITAL SIGNS: Last recorded temperature 98.3, pulse 89, respirations 20, blood pressure 169/94. HEENT: Appeared to be benign. Cranial nerves grossly intact. Facies are symmetric. CHEST: Sounded clear to auscultation. CARDIOVASCULAR: Regular rate and rhythm. ABDOMEN: Bowel sounds positive, nontender. He has the catheter in place on right upper chest wall. EXTREMITIES: Functional range of motion of the upper extremities and just did gentle strengthening of that right upper extremity as far as manual muscle testing with the recent catheter placement of the right chest wall. Strength is grade 4-/5. Lower extremities, decreased distal sensation bilateral lower extremities from the knees distal. Strength is grade 4- proximally and 4- to 3+ distally. DTRs are trace to 1. He needs assistance with basic functional mobility skills and ADLs. He is needing least contact for basic transfers and mobility skills short distance. ASSESSMENT: This is a 52-year-old -Slov[place] male with the following problem list: 1. Peripheral polyneuropathy with bilateral lower extremity weakness. 2. Medical complexity with generalized debilitation. 3. Peritoneal catheter infection with peritonitis. 4. Sepsis, improved. 5. End-stage renal disease requiring dialysis. 6. History of insulin-dependent diabetes mellitus. 7. Coronary artery disease, status post stent. 8. History of pulmonary embolism. 9. History of atrial fibrillation. 10. Coumadin anticoagulation for the above. 11. Chronic pain syndrome. He has had a spinal cord stimulator removed in the past. 12. Gout. 13. Restless leg syndrome. 14. Anxiety with depression. PLAN: The patient is admitted for acute in-hospital inpatient rehabilitation. From a postadmission physician evaluation perspective, there are no relevant changes since the preadmission screening. Please see the above review of prior and current medical and functional conditions and comorbidities. Please see the patient's previous and current functional status. As far as risk of [address] [address] HISTORY AND PHYSICAL Name: CHAYITO SU Room #: 515-P [facility] IN M.R.#: [id number] Admission: 10/22/17 Attend Phys: Jose Alejandro Leon MD Discharge: Date of : 65 Report #: [id number] complications, he has multiple medical comorbidities as noted above. Initial plan of care involves the interdisciplinary acute inpatient rehabilitation program with the goal of maximizing the patient's functional independence, so he can hopefully return back to his prior living situation. Measurable functional goals would be for the patient to become modified independent with transfers, mobility and ADLs that he can hopefully return back to his prior living situation. Prognosis is reasonably good with estimated length of stay probably fairly short around 5-7 days. Potential barriers would include his multiple medical comorbidities and decreased functional status. <ELECTRONICALLY SIGNED> By: Jose Alejandro Leon MD 10/25/17 1228 0834 0855 Jose Alejandro Leon MD /nt
[~2017-10-22 09:17] MED LIST changes: +COUMADIN 3 MG TA3 M1 PO
[2017-10-22] MEDS ORDERED: UNASYN 3 GM VIAL3 G1 IV (12:40)
[2017-10-22 17:30] VITALS: BP 153/93
[2017-10-22 20:09] VITALS: BP 169/94
[2017-10-23 05:28] LABS: HEMATOCRIT 26.1 % (42.0-52.0); MCH 30.4 pg (26.0-34.0); MCHC 34.4 g/dL (28.0-37.0); MCV 88.2 fL (80.0-100.0); RBC 2.96 mil/uL (4.50-6.00); RDW 13.1 % (10.5-14.5); WBC 5.5 thou/uL (4.0-11.0)
[2017-10-23 05:36] LABS: CALCIUM 8.1 mg/dL (8.5-10.1)
[2017-10-23 05:50] LABS: CREATININE 5.7 mg/dL (0.7-1.3)
[2017-10-23 07:30] VITALS: BP 158/94
[2017-10-23 09:22] LABS: CHOLESTEROL 144 mg/dL (<200); HDL CHOLESTEROL 45 mg/dL (>40); LDL CHOLESTEROL 75 mg/dL (<100); MAGNESIUM 2.4 mg/dL (1.8-2.4); TC:HDL 3.2 Ratio (Not establshd); TRIGLYCERIDE 122 mg/dL (<150); VLDL 24 mg/dL (<40)
[2017-10-23 19:48] VITALS: BP 149/88
[2017-10-24 02:10] LABS: GLYCOHEMOGLOBIN (HGB A1C) 6.5 % (4.8-5.6)
[2017-10-24 07:35] LABS: PROTIME 10.5 Seconds (9.3-11.4)
[2017-10-24 07:45] VITALS: BP 153/83
[2017-10-24 17:34] VITALS: BP 151/68
[2017-10-24 20:25] VITALS: BP 145/69
[2017-10-25 06:35] LABS: INR 1.1; PROTIME 11.3 Seconds (9.3-11.4)
[2017-10-25 07:30] VITALS: BP 152/87
[2017-10-26 08:00] VITALS: BP 157/84
[2017-10-26 20:50] VITALS: BP 152/80
[2017-10-27 07:30] VITALS: BP 160/81
[2017-10-27 07:49] LABS: INR 1.2; PROTIME 12.1 Seconds (9.3-11.4)
[2017-10-27 20:00] VITALS: BP 140/77
[2017-10-28 07:10] VITALS: BP 161/81
[2017-10-28 10:24] VITALS: BP 161/81
[2017-10-28] MEDS ORDERED: LEVEMIR SUBQ (10:35)
[2017-10-28] MEDS ORDERED: LISINOPRIL10 MG PO (10:35)
[2017-10-28] MEDS ORDERED: COLACE100 MG PO (10:35)
[2017-10-28] MEDS ORDERED: MIRALAX17 GM PO (10:36)
[2017-10-28] MEDS ORDERED: AUGMENTIN 500-1 EACH PO (10:38)
[2017-10-28] MEDS ORDERED: PROBIOTIC1 EAC1 PO (10:38)
[2017-10-28] MEDS ORDERED: NORCO 7.5-3251 EACH PO (10:40)
[2017-10-28 12:13] VITALS: BP 161/81
[2017-10-28 14:26] VITALS: BP 161/81
== END 2017-10-28 14:24 | disposition home health service (06) | DRG 73 ==
PROVIDERS: Nurse Practitioner; Physical Medicine & Rehabilitation
PROC: 5A1D70Z Performance of Urinary Filtration, Intermittent, Less than 6 Hours Per Day (ICD-10-PCS; principal; 2017-10-24)
PROC: 5A1D70Z Performance of Urinary Filtration, Intermittent, Less than 6 Hours Per Day (ICD-10-PCS; 2017-10-26)
DX: E11.42 Type 2 diabetes mellitus with diabetic polyneuropathy (principal); K65.0 Generalized (acute) peritonitis; A41.9 Sepsis, unspecified organism; N18.6 End stage renal disease; T85.71XA Infection and inflammatory reaction due to peritoneal dialysis catheter, initial encounter; I12.0 Hypertensive chronic kidney disease with stage 5 chronic kidney disease or end stage renal disease; F11.20 Opioid dependence, uncomplicated; R53.81 Other malaise; Z99.2 Dependence on renal dialysis; G89.4 Chronic pain syndrome; I25.10 Atherosclerotic heart disease of native coronary artery without angina pectoris; I48.91 Unspecified atrial fibrillation; E11.22 Type 2 diabetes mellitus with diabetic chronic kidney disease; M10.9 Gout, unspecified; G25.81 Restless legs syndrome; F41.8 Other specified anxiety disorders; Z60.2 Problems related to living alone; B95.7 Other staphylococcus as the cause of diseases classified elsewhere; Y84.1 Kidney dialysis as the cause of abnormal reaction of the patient, or of later complication, without mention of misadventure at the time of the procedure; Z86.711 Personal history of pulmonary embolism; Z79.4 Long term (current) use of insulin; Z79.01 Long term (current) use of anticoagulants; Z95.5 Presence of coronary angioplasty implant and graft; Z87.891 Personal history of nicotine dependence; Z91.013 Allergy to seafood; Z91.018 Allergy to other foods; Y92.098 Other place in other non-institutional residence as the place of occurrence of the external cause
CPT/HCPCS: 10112; 32100

== ENCOUNTER 2017-11-20 12:27 | Emergency (ER) | payer OTHER ==
[~2017-11-20] VITALS: Ht 182.9 cm; Wt 102.1 kg
--- NOTE | ~2017-11-20 | EKG ---
[place] [address] [facility] [place] [address] ELECTROCARDIOGRAM REPORT Name: CHAYITO SU Room #: DEP CONNER Mancia#: [id number] Admission: 11/20/17 Attend Phys: Discharge: 11/20/17 Date of : 65 Report #: [id number] THIS REPORT FOR: //name// [facility] ED Test Date: 2017-11-20 Test Time: 12:50:22 Pat Name: CHAYITO SU Department: Room: Gender: Collar Tailor: SHAHEEN : 1965 Requested By: Isaiah Chun Order Number: [id number] MD: Abhi Watkins Measurements Intervals [place] Rate: 89 P: -18 MO: 194 QRS: -48 QRSD: 76 T: 89 QT: 370 QTc: 451 Interpretive Statements Sinus rhythm Left anterior fascicular block Borderline T wave abnormalities Compared to ECG 10/15/2017 15:05:02 Left anterior fascicular block now present T-wave abnormality now present Sinus tachycardia no longer present Electronically Signed On 11-22-2017 8:31:43 CDT by Abhi Watkins [email or web address] <ELECTRONICALLY SIGNED> By: Abhi Watkins MD, [facility] 11/22/17 0831 1250 1250 Abhi Watkins MD, [facility] /EPI
[~2017-11-20 12:27] MED LIST changes: +AUGMENTIN 500-1 EACH PO; +COLACE100 MG PO; +MIRALAX17 GM PO; +NORCO 7.5-3251 EACH PO; +PROBIOTIC1 EAC1 PO; +UNASYN 3 GM VIAL3 G1 IV
[2017-11-20 13:13] LABS: ABSOLUTE NEUTROPHILS 2.9 thou/uL (1.4-8.2); EOSINOPHILS 8.6 % (0.0-3.0); HEMATOCRIT 33.2 % (42.0-52.0); HEMOGLOBIN 11.3 gm/dL (14.0-18.0); LYMPHOCYTES 20.4 % (24.0-44.0); MCH 30.4 pg (26.0-34.0); MCHC 34.1 g/dL (28.0-37.0); MCV 89.1 fL (80.0-100.0); MONOCYTES 9.4 % (1.0-8.0); PLATELET COUNT 166 thou/uL (150-400); POLYS 60.6 % (36.0-66.0); RBC 3.72 mil/uL (4.50-6.00); WBC 4.9 thou/uL (4.0-11.0)
[2017-11-20 13:22] LABS: ANION GAP 9 mmol/L (7-16); BUN 27 mg/dL (7-18); CALCIUM 8.3 mg/dL (8.5-10.1); CHLORIDE 101 mmol/L (98-107); CO2 29 mmol/L (21-32); CREATININE 5.8 mg/dL (0.7-1.3); GLUCOSE 138 mg/dL (74-106); POTASSIUM 3.8 mmol/L (3.5-5.1); SODIUM 139 mmol/L (136-145)
[2017-11-20 13:31] LABS: TROPONIN-I <0.06 ng/mL (<0.06)
[2017-11-20 13:33] LABS: INR 1.8; PROTIME 17.8 Seconds (9.3-11.4)
[2017-11-20 15:45] VITALS: BP 151/89
== END 2017-11-20 15:57 | disposition home or self-care (01) ==
LOC: ER 12:27
PROVIDERS: Physician Assistant
DX: I12.0 Hypertensive chronic kidney disease with stage 5 chronic kidney disease or end stage renal disease (principal); E11.22 Type 2 diabetes mellitus with diabetic chronic kidney disease; N18.5 Chronic kidney disease, stage 5; I48.0 Paroxysmal atrial fibrillation; F32.9 Major depressive disorder, single episode, unspecified; F41.9 Anxiety disorder, unspecified; M10.9 Gout, unspecified; G25.81 Restless legs syndrome; M79.7 Fibromyalgia; G89.4 Chronic pain syndrome; E11.40 Type 2 diabetes mellitus with diabetic neuropathy, unspecified; Z95.5 Presence of coronary angioplasty implant and graft; Z79.4 Long term (current) use of insulin; Z91.018 Allergy to other foods; Z91.013 Allergy to seafood; Z87.891 Personal history of nicotine dependence

== ENCOUNTER → 2018-02-26 | Outpatient (CLI) | payer OTHER | LOC: NUC 08:14 → CARD 08:14 → NUC 09:08 | DX: I25.10 Atherosclerotic heart disease of native coronary artery without angina pectoris (principal); R07.9 Chest pain, unspecified ==

== ENCOUNTER 2018-03-28 13:55 | Emergency (ER) | payer OTHER ==
[~2018-03-28] VITALS: Ht 182.9 cm; Wt 97.5 kg
--- NOTE | ~2018-03-28 | EKG ---
[place] [address] [address] [place] [address] ELECTROCARDIOGRAM REPORT Name: CHAYITO SU Room #: DEP CONNER Mancia#: [id number] Admission: 03/28/18 Attend Phys: Discharge: 03/28/18 Date of : 65 Report #: [id number] THIS REPORT FOR: //name// [facility] ED Test Date: 2018-03-28 Test Time: 14:56:29 Pat Name: CHAYITO SU Department: Room: Gender: M Gambling Counsellor: WG : 1965 Requested By: Mohit Zheng Order Number: [id number] MD: Rohit Barnhart Measurements Intervals [place] Rate: 89 P: 1 DE: 207 QRS: -30 QRSD: 84 T: 96 QT: 355 QTc: 432 Interpretive Statements Sinus rhythm Borderline prolonged DE interval Left axis deviation Nonspecific T abnormalities, lateral leads Compared to ECG 11/20/2017 12:50:22 no significant changes Electronically Signed On 03-30-2018 22:42:40 MAINTENANCE SUPERVISOR 2ND SHIFT by Rohit Barnhart [email or web address] <ELECTRONICALLY SIGNED> By: Rohit Barnhart MD 03/30/18 2242 1456 145 Rohit Barnhart MD /TYE
[2018-03-28 15:52] LABS: HEMATOCRIT 34.3 % (42.0-52.0); HEMOGLOBIN 11.5 gm/dL (14.0-18.0); MCH 30.9 pg (26.0-34.0); MCHC 33.5 g/dL (28.0-37.0); RBC 3.73 mil/uL (4.50-6.00); RDW 16.5 % (10.5-14.5); WBC 4.8 thou/uL (4.0-11.0)
[2018-03-28 16:02] LABS: ANION GAP 11 mmol/L (7-16); BUN 51 mg/dL (7-18); CALCIUM 9.1 mg/dL (8.5-10.1); CHLORIDE 96 mmol/L (98-107); CO2 28 mmol/L (21-32); CREATININE 9.2 mg/dL (0.7-1.3); GLUCOSE 135 mg/dL (74-106); POTASSIUM 4.3 mmol/L (3.5-5.1); SODIUM 135 mmol/L (136-145)
[2018-03-28 16:11] LABS: TROPONIN-I <0.06 ng/mL (<0.06)
[2018-03-28 16:21] LABS: PROTIME 9.8 Seconds (9.3-11.4)
[2018-03-28 16:22] LABS: APTT 27.8 Seconds (24.5-32.8)
[2018-03-28 17:46] VITALS: BP 124/79
[2018-03-28] MEDS ORDERED: OXYCODONE HCL10 MG PO (17:56)
== END 2018-03-28 18:01 | disposition home or self-care (01) ==
LOC: ER 13:55
PROVIDERS: Emergency Medicine
DX: R05 Cough (principal); R55 Syncope and collapse; M79.89 Other specified soft tissue disorders; G89.18 Other acute postprocedural pain; I48.0 Paroxysmal atrial fibrillation; E11.9 Type 2 diabetes mellitus without complications; F32.9 Major depressive disorder, single episode, unspecified; F41.9 Anxiety disorder, unspecified; M10.9 Gout, unspecified; G25.81 Restless legs syndrome; I12.9 Hypertensive chronic kidney disease with stage 1 through stage 4 chronic kidney disease, or unspecified chronic kidney disease; N18.5 Chronic kidney disease, stage 5; E11.22 Type 2 diabetes mellitus with diabetic chronic kidney disease; M79.7 Fibromyalgia; G89.4 Chronic pain syndrome; E11.40 Type 2 diabetes mellitus with diabetic neuropathy, unspecified; Z95.5 Presence of coronary angioplasty implant and graft; Z87.891 Personal history of nicotine dependence; Z91.018 Allergy to other foods; Z91.013 Allergy to seafood; Z79.4 Long term (current) use of insulin

== ENCOUNTER → 2018-04-16 | Outpatient (CLI) | payer OTHER ==
[~2018-04-16] MED LIST changes: +OXYCODONE HCL10 MG PO
== END ==
LOC: CAT 10:08
DX: N28.1 Cyst of kidney, acquired (principal); I25.10 Atherosclerotic heart disease of native coronary artery without angina pectoris

== ENCOUNTER 2018-12-16 17:31 | Emergency (ER) | payer OTHER ==
[~2018-12-16] VITALS: Ht 182.9 cm; Wt 97.5 kg
[2018-12-16] MEDS ORDERED: COUMADIN 2 MG TA2 M1 PO (17:46)
[2018-12-16] MEDS ORDERED: OXYCONTIN10 M1 PO (17:46)
[2018-12-16] MEDS ORDERED: LEVEMIR SUBQ (17:48)
[2018-12-16] MEDS ORDERED: RENVELA800 MG PO (18:13)
[2018-12-16] MEDS ORDERED: REGLAN 10 MG TA10 MG PO (18:14)
[2018-12-16] MEDS ORDERED: DESIPRAMINE 2525 M1 PO (18:14)
[2018-12-16] MEDS ORDERED: PROTONIX40 MG PO (19:16)
[2018-12-16 19:28] VITALS: BP 124/79
== END 2018-12-16 19:28 | disposition home or self-care (01) ==
LOC: ER 17:31
DX: K20.9 Esophagitis, unspecified (principal); I48.91 Unspecified atrial fibrillation; F41.9 Anxiety disorder, unspecified; F32.9 Major depressive disorder, single episode, unspecified; M10.9 Gout, unspecified; G25.81 Restless legs syndrome; M79.7 Fibromyalgia; E11.22 Type 2 diabetes mellitus with diabetic chronic kidney disease; I12.0 Hypertensive chronic kidney disease with stage 5 chronic kidney disease or end stage renal disease; N18.5 Chronic kidney disease, stage 5; E11.40 Type 2 diabetes mellitus with diabetic neuropathy, unspecified; G89.29 Other chronic pain; Z86.711 Personal history of pulmonary embolism; Z79.4 Long term (current) use of insulin; Z95.5 Presence of coronary angioplasty implant and graft; Z91.013 Allergy to seafood; Z91.018 Allergy to other foods; Z87.891 Personal history of nicotine dependence

== ENCOUNTER → 2020-08-23 | Outpatient (CLI) | payer OTHER ==
[~2020-08-23] MED LIST changes: +COUMADIN 2 MG TA2 M1 PO; +OXYCONTIN10 M1 PO; +PROTONIX40 MG PO; +REGLAN 10 MG TA10 MG PO; +RENVELA800 MG PO
== END ==
LOC: LAB 07:40
PROVIDERS: ATTEND Pediatrics
DX: Z01.812 Encounter for preprocedural laboratory examination (principal); Z20.822 Contact with and (suspected) exposure to COVID-19

== ENCOUNTER → 2020-08-26 | Outpatient (CLI) | payer OTHER ==
--- NOTE | ~2020-08-26 | PFR/MVV ---
[facility] [place] [address] PULMONARY FUNCTION MVV/REPORT Name: CHAYITO SU Room #: REG WADE Mancia#: [id number] Admission: 08/26/20 Attend Phys: Manjeet Gamboa MD Discharge: Date of : 65 Report #: [id number] THIS REPORT FOR: //name// COPIES FOR: AGE: 54 SEX/RACE: M/B >> SPIROMETRY: (BTPS) Height: 70 in cm Weight: 248 lbs kg Exam Date: 08/26/20 PRE-RX POST-RX PRED BEST %PRED BEST %PRED %CHG FVC LITERS . 4.77 . 3.29 . 69 . 3.50 . 73 . 6 FEV1 LITERS . 3.45 . 2.91 . 84 . 3.02 . 88 . 4 FEV1/FVC % . 72 . 88 . 122 . 86 . 120 . -2 IWO68-85% L/Sec . 3.37 . 4.15 . 123 . 3.98 . 118 . -4 PEF L/SEC . 8.83 . 8.01 . 91 . 7.13 . 81 . -11 FEF50/FIF50 UNITLESS . ,1.00 . 2.17 . . 2.79 . . 28 MVV L/Min . 148 . 125 . 85 f 1/Min . . 150 . >> LUNG VOLUMES: (BTPS) PRE-RX POST-RX PRED AVG %PRED AVG %PRED %CHG VC Liters . 4.77 . 4.21 . 88 . . . TLC Liters . 6.75 . 5.90 . 87 . . . RV Liters . 2.27 . 1.69 . 74 . . . RV/TLC % . 35 . 29 . 81 . . . FRC PL Liters . 3.21 . 2.14 . 67 . . . FRC N2 Liters . 3.21 . . . . . ERV Liters . 1.61 . 0.45 . 28 . . . IC Liters . 3.22 . 3.16 . 98 . . . >> DIFFUSION: DLCO ml/Min/mmHg . 29.4 . 19.7 . 67 . . . DL Catherine ml/Min/mmHg . 29.4 . 19.7 . 67 . . . DLCO/VA ml/Min/mmHg . 3.90 . 4.78 . 123 . . . VA Liters . 7.14 . 4.13 . 58 . . . [facility] [address] [place] [address] PULMONARY FUNCTION MVV/REPORT Name: GEORGESCHAYITO Room #: REG WADE Mancia#: [id number] Admission: 08/26/20 Attend Phys: Manjeet Gamboa MD Discharge: Date of : 65 Report #: [id number] COMMENTS: COMMENTS: >> RESISTANCE: PRE-RX PRED AVG %PRED Raw Total cmH20/L/Sec . . 3.14 . Raw Insp cmH20/L/Sec . . 3.77 . Raw Exp cmH20/L/Sec . . 2.39 . Raw cmH20/L/Sec . 1.44 . 1.87 . 130 Gaw L/Sec/cmH20 . 0.770 . 0.536 . 70 sRaw cmH20 Sec . 4.62 . 5.93 . 128 sGaw l/cmH20 Sec . 0.216 . 0.169 . 78 Vtq Liters . . 3.18 . # = OUTSIDE 95% CONFIDENCE INTERVAL CALIBRATION: PRED: 3.00 ACTUAL: EXP 3.01 INSP 3.02 [place] [id number] [place] [address] N-1804-4 >> INTERPRETATION/IMPRESSION: PULMONARY FUNCTION STUDIES SPIROMETRY: FEV1 is 2.91 liters (84%), FVC is 3.29 liters (69%), FEV1/FVC ratio is 88%. Post-bronchodilator therapy with no significant response. LUNG VOLUMES: Total lung capacity is 5.90 liters (87%). Diffusing capacity is 67%. IC to ERV ratio is 3.16-0.45. IMPRESSION: Pulmonary function studies are essentially normal. There is no significant response to bronchodilator therapy. There is no obstruction to airflow. Total lung volumes are within normal limits and likely suggestive of a pseudorestriction. Diffusing capacity is slightly decreased. By: Manjeet Gamboa MD /nt
== END ==
LOC: PUL 08-17 11:22
PROVIDERS: ATTEND Pediatrics
DX: R06.02 Shortness of breath (principal)